=== PATIENT | male | born 1940 | race Caucasian/White ===

== ENCOUNTER 2021-04-18 23:04 | Emergency (ER) | payer MEDICARE, OTHER ==
[~2021-04-18] VITALS: Ht 177.8 cm; Wt 77.1 kg
[~2021-04-18 23:04] MED LIST: DIGOXIN125 MCG PO; DILTIAZEM 24HR120 MG PO; FAMOTIDINE40 MG PO; GABAPENTIN300 MG PO; JANTOVEN5 MG PO; LOVASTATIN20 MG PO; OMEPRAZOLE20 MG PO; PROPRANOLOL HCL60 MG PO
[2021-04-18] MEDS ORDERED: FLUTICASONE PRO16 GM NAS (23:18)
[2021-04-19] MEDS ORDERED: LASIX20 MG PO (01:07)
--- NOTE | 2021-04-19 06:54 | EKG ---
[facility] [address] [facility] [place], [place] [address] Signed Atrial fibrillation Low voltage QRS Nonspecific ST and T wave abnormality Abnormal ECG No previous ECGs available Confirmed by ANU LOONEY MD ([id number]) on 04/19/2021 6:54:41 AM Electronically Signed By: ANU LOONEY MD 04/19/21 0654 PATIENT NAME: DANIELLE ROMERO Electrocardiogram DATE OF : 36 PHYSICIAN: ANU LOONEY MD REPORT #: [id number] REPORT IS CONFIDENTIAL AND NOT TO BE RELEASED WITHOUT AUTHORIZATION
== END 2021-04-19 01:15 | disposition home or self-care (01) ==
LOC: ED 23:04
DX: I50.9 Heart failure, unspecified (principal); I48.91 Unspecified atrial fibrillation; Z88.2 Allergy status to sulfonamides; Z79.899 Other long term (current) drug therapy; Z20.822 Contact with and (suspected) exposure to COVID-19; Z79.01 Long term (current) use of anticoagulants
CPT/HCPCS: 36415; 71045; 80053; 83880; 84484; 85025; 85379; 85610; 93005; 93010; 96374; 99285-25; C9803; J1940; U0003

== ENCOUNTER 2022-01-06 14:08 | Emergency (ER) | payer OTHER, MEDICARE ==
[~2022-01-06] VITALS: Ht 177.8 cm; Wt 81.7 kg
[~2022-01-06 14:08] MED LIST changes: +CARDIZEM30 MG PO; +FLUTICASONE PRO16 GM NAS; +LASIX20 MG PO; +METOPROLOL SUCC25 MG PO
--- NOTE | 2022-01-06 15:21 | EKG ---
[facility] [address] [place] [address] Signed Atrial fibrillation Abnormal ECG When compared with ECG of 03-AUG-2021 16:24, Vent. rate has increased BY 42 BPM Confirmed by KACI CHOI MD ([id number]) on 01/06/2022 3:21:09 PM Electronically Signed By: KACI CHOI MD 01/06/22 1521 PATIENT NAME: DANIELLE ROMERO Electrocardiogram DATE OF : 36 PHYSICIAN: KACI CHOI MD REPORT #: [id number] REPORT IS CONFIDENTIAL AND NOT TO BE RELEASED WITHOUT AUTHORIZATION
== END 2022-01-06 19:00 | disposition short-term general hospital (02) ==
LOC: ED 14:08
DX: S06.5XAA Traumatic subdural hemorrhage with loss of consciousness status unknown, initial encounter (principal); S22.059A Unspecified fracture of T5-T6 vertebra, initial encounter for closed fracture; Z79.01 Long term (current) use of anticoagulants; W01.10XA Fall on same level from slipping, tripping and stumbling with subsequent striking against unspecified object, initial encounter; I48.91 Unspecified atrial fibrillation; E78.00 Pure hypercholesterolemia, unspecified; Z88.2 Allergy status to sulfonamides; Z79.899 Other long term (current) drug therapy; Z20.822 Contact with and (suspected) exposure to COVID-19
CPT/HCPCS: 36415; 70450; 71045; 71260; 72125; 73110; 80053; 84484; 85025; 85610; 85730; 93005; 93010; 99285-25; C9803; J1885; J3010; J3430; J7168; Q9967; U0003

== ENCOUNTER 2022-02-16 10:22 | Emergency (ER) | payer MEDICARE, OTHER ==
[~2022-02-16] VITALS: Ht 177.8 cm; Wt 81.7 kg
== END 2022-02-16 15:53 | disposition home or self-care (01) ==
LOC: ED 10:22
DX: U07.1 COVID-19 (principal); I48.20 Chronic atrial fibrillation, unspecified; E78.00 Pure hypercholesterolemia, unspecified; Z88.2 Allergy status to sulfonamides; Z79.899 Other long term (current) drug therapy; Z79.01 Long term (current) use of anticoagulants
CPT/HCPCS: 87502; 99283; C9803; U0003

== ENCOUNTER 2022-04-29 17:39 | Emergency (ER) | payer OTHER, MEDICARE ==
[~2022-04-29] VITALS: Ht 177.8 cm; Wt 81.7 kg
== END 2022-04-29 21:54 | disposition short-term general hospital (02) ==
LOC: ED 17:39
DX: S06.2X0A Diffuse traumatic brain injury without loss of consciousness, initial encounter (principal); S22.039A Unspecified fracture of third thoracic vertebra, initial encounter for closed fracture; W01.10XA Fall on same level from slipping, tripping and stumbling with subsequent striking against unspecified object, initial encounter; I48.91 Unspecified atrial fibrillation; E78.00 Pure hypercholesterolemia, unspecified; Z88.2 Allergy status to sulfonamides; Z79.899 Other long term (current) drug therapy; Z79.01 Long term (current) use of anticoagulants
CPT/HCPCS: 36415; 70450; 72125; 72128; 72131; 80053; 85025; 86850; 86900; 86901; 87502; 96374; 96375; 96376; 99285-25; G0480; J2270; J2405; U0003

== ENCOUNTER 2022-06-02 12:06 | Emergency (ER) | payer MEDICARE, OTHER ==
[~2022-06-02] VITALS: Ht 177.8 cm; Wt 74.4 kg
[2022-06-02] MEDS ORDERED: VENTOLIN HFA18 GM INH (12:42)
[2022-06-02] MEDS ORDERED: PERCOCET 5-3251 EACH PO (16:00)
[2022-06-03] MEDS ORDERED: OXYCODONE-ACET1 EAC1 PO (14:24)
[2022-06-03] MEDS ORDERED: DILTIAZEM HCL30 MG PO (14:25)
[2022-06-03] MEDS ORDERED: JANTOVEN5 MG PO (14:26)
[2022-06-03] MEDS ORDERED: CENTRUM SILVER1 EAC6 PO (15:51)
[2022-06-03] MEDS ORDERED: VITAMIN D3125 MC1 PO (15:53)
[2022-06-03] MEDS ORDERED: MAGNESIUM OXID400 M1 PO (15:53)
== END 2022-06-02 16:17 | disposition home or self-care (01) ==
LOC: ED 12:06
DX: S52.002A Unspecified fracture of upper end of left ulna, initial encounter for closed fracture (principal); S63.287A Dislocation of proximal interphalangeal joint of left little finger, initial encounter; S01.112A Laceration without foreign body of left eyelid and periocular area, initial encounter; W19.XXXA Unspecified fall, initial encounter; I48.91 Unspecified atrial fibrillation; I50.9 Heart failure, unspecified; E78.00 Pure hypercholesterolemia, unspecified; Z88.2 Allergy status to sulfonamides; Z79.899 Other long term (current) drug therapy; Z79.01 Long term (current) use of anticoagulants
CPT/HCPCS: 12013; 28660; 36415; 70450; 71045; 72125; 73080; 73140; 80053; 85025; 85610; 86850; 86900; 86901; 99284-25; G0480; J7030; J7040

== ENCOUNTER 2022-06-03 10:05 | Inpatient (IN) | payer MEDICARE, OTHER ==
[~2022-06-03] VITALS: Ht 177.8 cm; Wt 77.6 kg
[~2022-06-03 10:05] MED LIST changes: +PERCOCET 5-3251 EACH PO; +VENTOLIN HFA18 GM INH
--- NOTE | 2022-06-03 13:30 | NUR ---
REPORT RECEIVED FROM VTC TECHNICIAN AND PT CARE RESUMED. INTAKE COMPLETED. PT. REPORTS PAIN IS 3/10 AND REFUSES PAIN MEDS. DISCUSSED SAFETY AND POC. 2 RN SKIN ASSESSMENT COMPLETED BY THIS RN AND KOURTNEY. LEFT RESTING WITH CALL LIGHT IN REACH AND AT BEDSIDE.
[2022-06-03] MEDS ORDERED: OXYCODONE-ACET1 EAC1 PO (14:24)
[2022-06-03] MEDS ORDERED: DILTIAZEM HCL30 MG PO (14:25)
[2022-06-03] MEDS ORDERED: JANTOVEN5 MG PO (14:26)
--- NOTE | 2022-06-03 14:30 | NUR ---
THIS RN TO ROOM TO ASSIST WITH ADMISSION. CRYO CUFF PLACED PER MD ORDER. ROLLED TOWEL PLACED UNDER LEFT HEEL. LEFT LEG BRACE LEFT IN PLACE WITH NO ADJUSTMENTS MADE. PT JEANMARIE PAIN WITH INTERVENTIONS. MEI HOSE AND HEEL PROTECTOR PLACED TO RIGHT LEG AT THIS TIME. tELEMETRY PLACED PER DR CHOI ORDER. THIS RN PERFORMS SKIN ASSESSMENT WITH LENORA RN. (SEE SKIN ASSESSMENT DOCUMENTATION. PT CHANGED INTO GOWN. SLINE REAPPLIED. PT CRINGES WITH PAIN OCCATIONALLY WITH MOVEMENT OF LEFT ARM, CALMS AND REPORTS FEELING COMFORTABLE AFTER SLING IS REPLACED. NO ADDITIONAL NEEDS AT THIS TIME. LENORA, PTS PRIMARY RN AT BEDSIDE AND AWARE OF CARES. CALL LIGHT WITHIN REACH. BED RAILS UP.
--- NOTE | 2022-06-03 15:34 | NUR ---
ROUNDING ON PT. HE IS RESTING WITH EYES CLOSED AND AT BEDSIDE. ON TELEMETRY. DENIES NEEDS FOR HIM AT THIS TIME. CALL LIGHT IN REACH.
[2022-06-03] MEDS ORDERED: CENTRUM SILVER1 EAC6 PO (15:51)
[2022-06-03] MEDS ORDERED: MAGNESIUM OXID400 M1 PO (15:53)
[2022-06-03] MEDS ORDERED: VITAMIN D3125 MC1 PO (15:53)
--- NOTE | 2022-06-03 15:56 | NUR ---
MED REC COMPLETE
--- NOTE | 2022-06-03 16:00 | NUR ---
Spoke with pt and his Arti. They live in [place] in a house with 3 steps. Pt denies issues getting in and out of the house. states pt has had frequent falls and has been injured each time. Pt has a walker and cane. She states daughter in law went to [place] and picked up several items for pt. She is unsure what equipment she got. Discussed Dr. Parnell called and states pt needs placement to a SNF. Both states they are aware and want to go to [facility]. They do not want to leave town. I will send the chart to [facility] today, per a conversation with them this morning, they will not have beds until the middle of next week. states concern as she believes her insurance will only cover for 30 days. Discussed Medicare will pay 21 days and [facility] will assist her to check for her secondary insurance [employer]. also states pt has completed a sleep study and CPAP is in process. She denies financial issues and states everything will be fine if the insurance covers his SNF stay. They do not use food bank or [employer]. states pt will have surgery on Monday. Will follow up them on Monday.
--- NOTE | 2022-06-03 17:00 | NUR ---
Faxed face sheet, ER note, H&P, med list, covid vac sheet, and Xrays to Augie at [facility]. Note added pt will have surgery on Monday and will dc sometime next week.
--- NOTE | 2022-06-03 19:30 | NUR ---
RECEIVED BEDSIDE REPORT FROM OFFGOING SHIFT, HOURLY ROUNDING INITIATED
--- NOTE | 2022-06-03 20:20 | NUR ---
IN PT ROOM FOR MEDICATION ADMINISTRATION AND ASSESSMENT. PT RESTING ON BACK, SLING IN PLACE, TOWELS UNDER ANKLE WITH NO COMPLAINT OF PAIN. PT IS MEDICATION COMPLIANT, CALL LIGHT IN REACH
--- NOTE | 2022-06-03 21:31 | EKG ---
[facility] [address] [facility] [place] [address] Signed Atrial fibrillation Abnormal ECG When compared with ECG of 06-JAN-2022 14:33, No significant change was found Confirmed by KACI CHOI MD ([id number]) on 06/03/2022 9:31:29 PM Electronically Signed By: KACI CHOI MD 06/03/222130 PATIENT NAME: DANIELLE ROMERO Electrocardiogram DATE OF : 36 PHYSICIAN: KACI CHOI MD REPORT #: [id number] REPORT IS CONFIDENTIAL AND NOT TO BE RELEASED WITHOUT AUTHORIZATION
--- NOTE | 2022-06-03 21:50 | NUR ---
ROUNDED ON PT . REPLACED BATTERY IN TELE UNIT. PT STATES HE IS NOT SLEEPING WELL . DENIES ANY NEED FOR PAIN MEDICATION. WILL CALL FOR ANY NEEDS. CALL LIGHT IN REACH.
--- NOTE | 2022-06-03 23:58 | NUR ---
IN PT ROOM FOR ROUNDING. PT RESTING ON BACK, SLING AND BRACE IN PLACE, BREATHING EVEN AND UNLABORED, CALL LIGHT IN REACH NO INDICATION OF PAIN OR DISCOMFORT.
--- NOTE | 2022-06-04 01:00 | NUR ---
IN PT ROOM FOR ROUNDING. PT RESTING ON BACK, EYES CLOSED, BREATHING EVEN AND UNLABORED, NO INDICATION OF PAIN OR DISCOMFORT, CALL LIGHT IN REACH.
--- NOTE | 2022-06-04 02:23 | NUR ---
in pt room for medication administration, rounding. pt resting on back, eyes open, talking about the "incessant beeping". Pt has no complaint of pain when asked, call light in reach.
--- NOTE | 2022-06-04 03:35 | NUR ---
In pt room for rounding. pt resting on back, eyes closed, breathing even and unlabored with no indication of pain or discomforft, call light in reach.
--- NOTE | 2022-06-04 04:39 | NUR ---
IN PT ROOM FOR RESPONSE TO TELEMETRY READING A 9 BTS RUN OF V-TACH WITH A HEART RATE OF 134. WENT INTO ROOM IMMEDIATELY AND ASSESSED VS, THEY WERE STABLE (SEE VS) PT WAS ASYMPTOMATIC, LOC WAS A&OX4, INFORMED MD DR. CHOI AND A BMP AND MAGNESIUM LEVEL WERE ORDERED WITH NO FURTHER INTERVENTIONS.
--- NOTE | 2022-06-04 05:31 | NUR ---
Lab unable to get a blood draw on normal veins, contacted Dr. Azul and was informed ok to follow lab protocol regarding retrieving blood draw from IV line. Verified IV line was patent and followed lab protocol to good effect.
--- NOTE | 2022-06-04 06:55 | NUR ---
IN PT ROOM FOR ROUNDING. PT RESTING WITH EYES CLOSED, BREATHING UNLABORED AND EVEN, NO INDICATION OR COMPLAINT OF PAIN AT THIS TIME, CALL LIGHT IN REACH.
--- NOTE | 2022-06-04 09:00 | NUR ---
REPORT RECEIVED FROM NIGHT RN AND PT CARE RESUMED. PT. DENIES PAIN. ASSESSMENT COMPLETED. PT. ASSISTED WITH ORDERING BREAKFAST. MEI HOSE IN PLACE. CRYO CUFF FILLED WITH FRESH ICE WATER. LEFT RESTING WITH CALL LIGHT IN REACH.
--- NOTE | 2022-06-04 10:00 | NUR ---
PT. HAD BM ON BEDPAN AND STOOL SAMPLE SENT TO LAB. ASSISTED WITH CLEANING. BROUGHT ICE WATER AND LEFT RESTING WITH CALL LIGHT IN REACH.
--- NOTE | 2022-06-04 10:22 | NUR ---
PATIENT IN BED. VITALS AND I/O'S COMPLETED. CALL LIGHT WITHIN REACH.
--- NOTE | 2022-06-04 13:18 | NUR ---
IV PUMP ALARMING "DISTAL OCCULSION" FREQUENTLY. PT TRYING TO EAT AND BECOMING FRUSTRATED WITH PUMP ALARM. PT REQUESTS A NEW IV SITE. 2ND IV PLACED TO RIGHT WRIST PER PROTOCOL, BRISK BLOOD RETURN NOTED. IV FLUIDS MOVED TO THIS SITE. RIGHT AC IV FLUSHED AND SALINE LOCKED PER PROTOCOL. ALCOHOL CAP APPLIED. SKIN ASSESSMENT PERFORMED (FOR 2ND RN CHECK). PT DENIES ADDITIONAL REQUESTS OR COMPLAINTS. CALL LIGHT WITHIN REACH. BED RAILS UP. PTS PRIMARY RN UPDATED.
--- NOTE | 2022-06-04 13:26 | NUR ---
PT. BREATHING IS LOUDER AND MORE LABORED. PT. STATES HE IS MORE SOB. CRACKLES PRESENT IN LLL. O2 SAT IS 93% AND RR IS 28. MD UPDATED AND CHEST XRAY ORDERED. WILL CONTINUE TO MONITOR.
--- NOTE | 2022-06-04 14:33 | NUR ---
PATIENT IN BED AFTER MEAL. VITALS AND I/O'S COMPLETED, PENNY DRAINED AND DOCUMENTED. ICE WATER GIVEN. CALL LIGHT WITHIN REACH.
--- NOTE | 2022-06-04 18:58 | NUR ---
PTS RN, LENORA, CONCERNED ABOUT PTS INCREASED WORK OF BREATHING. OXGYEN SATURATIONS 93-95%. DR CHOI CALLED AND ORDERS GIVEN FOR CPAP X1-2 HOURS AND CONTINUED IF S/S IMPROVE. DR. OSEI ALSO CALLED (PER DR CHOI RECCOMENDATION) RELTAED TO PTS TRAUMA STATUS. ORDERS GIVEN FOR CHEST CT PE STUDY WITH CONTRAST AND TO HOLD CPAP UNTIL AFTER CT HAS BEEN COMPLETED. ORDERS ENTERED, REPEAT BACK PERFORMED WITH BOTH MDs. IMAGING CALLED. PT TO CT WITH Zuleika MILLER. PTS PRIMARY RN UPDATED.
--- NOTE | 2022-06-04 19:16 | NUR ---
SHIFT REPORT RECEIVED FROM LENORA FAIRBANKS, PT IS CURRENTLY IN CT.
--- NOTE | 2022-06-04 19:30 | NUR ---
PT RETURNED VIA BED FROM CT. ALERT. REPOSITIONED UP IN BED. LEFT ARM REMAINS IN SLING, FINGERS ON LEFT HAND WARM AND PINK, SLIGHT MOVEMENT NOTED, CRYO CUFF TO LEFT LEG, REFILLED WITH ICE PER LENORA RN, LEFT LEG BRACE INTACT, WITH TEDS HOSE ON LEFT LEG, TOES ON LEFT FOOT PINK AND WARM, TOWEL ROLL UNDER LEFT ANKLE. PT RESTING WITH EYES CLOSED, DENIES NEEDS AT THIS TIME.
--- NOTE | 2022-06-04 19:35 | NUR ---
NOTED THAT THE IV DOCUMENTED BEING IN LEFT AC WAS IN RIGHT AC, 20G, DRESSING INTACT, FLUSHES WELL, SL.
--- NOTE | 2022-06-04 19:52 | NUR ---
DR CHOI IN TO SEE PTMD STATES HE WILL FOLLOW UP ON CT WHEN RESULT AVAILABLE.
--- NOTE | 2022-06-04 20:50 | NUR ---
TC RECEIVED FROM DR OSEI, REQUESTING RESULTS OF CT SCAN, REPORTED TO MD THAT RESULTS HAVE NOT BE COMPLETED, MD REQUESTS TO BE CALLED WHEN RESULTS BECOME AVAILABLE.
--- NOTE | 2022-06-04 20:54 | NUR ---
VS DONE PRIOR TO LOPRESSOR ADMINISTRATION.
--- NOTE | 2022-06-04 21:56 | NUR ---
CT RESULTS CALLED TO DR OSEI PER EARILIER REQUEST, UPDATED ON PT'S MANUEL WITH SATS DOWN TO 91%, PLAN TO PLACE CPAP PER DR CHOI'S ORDER DISCUSSED, DR OSEI CONCURS WITH THIS.
--- NOTE | 2022-06-04 23:00 | NUR ---
PT AWAKE, PT HAD SOFT BROWN BM PER BEDPAN, REPOSITIONED TO RIGHT SIDE, BUTTOCK CLEANSED FROM STOOL, PT REPOSITIONED UP IN BED, LEFT ARM REMAINS IN SLING, LEFT LEG BRACE IN PLACE, NEW ICE TO CRYO MACHINE, PLACEMENT TO LEFT KNEE AREA, RT NOTIFIED PT IS READY FOR CPAP PLACEMENT.
--- NOTE | 2022-06-04 23:15 | NUR ---
CARL RT IN ROOM TO PLACE PT ON CPAP PER ORDER.
--- NOTE | 2022-06-05 00:02 | NUR ---
RN TO BEDSIDE FOR CPAP ALARM, PT HOLDING CPAP IN HANDS, REPLACED WITH ASSISTANCE FROM ROMERO RN, PT ATTEMPTING TO REST.
--- NOTE | 2022-06-05 00:20 | NUR ---
RN TO ROOM DUE TO CPAP ALARM, PT HOLDING MASK IN HIS HAND, PT TOLD RN HE IS DONE WITH CPAP, HE SAID HE NO LONGER WANTS TO WEAR CPAP AT THIS TIME, PT DENIES REQUEST, ATTEMPTING TO SLEEP, RT NOTIFEIED OF PT'S DECISION. CPAP PLACED IN STANDBY MODE PER RT INSTRUCTIONS.
--- NOTE | 2022-06-05 01:10 | NUR ---
PT APPEARS TO SLEEP, EYES CLOSED, O2 SAT 92%.
--- NOTE | 2022-06-05 02:05 | NUR ---
PT AWAKEN FOR RT LOPRESSOR, VS WNL FOR MEDICATION, PT WITHOUT REQUESTS, ATTEMPTING TO REST, CRYO IN PLACED AND COLD, IV SITE PATENT, I/O DONE.
--- NOTE | 2022-06-05 03:50 | NUR ---
PT RESTING WITH EYES CLOSED, OX SAT 93%.
--- NOTE | 2022-06-05 05:16 | NUR ---
PT AWAKEN, VS DONE AND BP RECHECKED, REMAINS AFEBRILE, LEFT ARM REMAINS IN SLING, AND LEFT LEG REMAINS IN FIXATION DEVICE. PT DENIES PAIN. ASSESSMENT COMPLETED.
--- NOTE | 2022-06-05 05:30 | NUR ---
THREE PERSON ASSIST TO TILT PATIENT, INCONTINENT OF SOFT BROWN STOOL, BUTTOCK CLEANSED AND BARRIER CREAM APPLIED, PT BECOME VERY DYSNIC WITH EXCERTION WITH SATS DOWN TO 89, OXYGEN PLACED ON PT AT 2L PER NC, PT REPOSITIONED UP IN BED, HOB ELEVATED APPROXIMATELY 30 DEGREES, RESP EFFORT EASES WHEN ALLOWED TO REST, PT CONTINUES TO DENY PAIN, CYRO REMAINS ON LEFT KNEE AND IS COLD, TOWEL ROLL UNDER LEFT ANKLE. AFTER APPROX 5 MINS SATS 98-99%, RESP LESS LABORED, PT RESTING WITH EYES CLOSED, OXYGEN TURNED OFF.
--- NOTE | 2022-06-05 07:57 | NUR ---
PT SLEEPING SOUNDLY AT TIME OF SHIFT REPORT. AWAKE NOW AND REPOSITIONED SITTING UP IN BED. ARM SLING AND KNEE IMMOBILZER IN PLACE. DR OSEI IN TO SEE PT
--- NOTE | 2022-06-05 08:12 | NUR ---
Pt repositioned in bed, am care completed, call light within reach.
--- NOTE | 2022-06-05 09:21 | NUR ---
PATIENT IN BED AFTER MEAL. VITALS AND I/O'S COMPLETED. PENNY DRAINED AND DOCUMENTED. ICE REFILLED TO CRYO-CUFF. ICE PACK TO LEFT ARM. ICE WATER GIVEN. CALL LIGHT WITHIN REACH.
--- NOTE | 2022-06-05 10:03 | NUR ---
PT VERY SOB WITH ACTIVITY OF TURNING IN BED RECOVERS FAIRLY QUICKLY. 02 APPLIED PRIOR TO TURNING AND DOING CLEVE CARE WITH INSTRUCTIONS TO BREATH THROUGH THE NOSE MUCH BETTER TOLERATED. CATH CARE COMPLETED PT CLEANED UP AFTER HAVING A BM. AGREES HE IS COMFORTABLE NOW
--- NOTE | 2022-06-05 10:58 | NUR ---
PT RESTING IN BED EYES CLOSED BREATHING EVEN AND UNLABORED. SOB REPORTED TO DR CHOI EARLIER.
--- NOTE | 2022-06-05 12:13 | NUR ---
PT SON IN TO SEE HIM FOR A SHORT TIME.
--- NOTE | 2022-06-05 14:51 | NUR ---
PT TOLERATING BI-PAP WELL. STOPS FOR PO MEDS AND SHORT BREAK THEN RESUMES TREATMENT
--- NOTE | 2022-06-05 15:56 | NUR ---
PT RESTING WITH BIPAP GOING
--- NOTE | 2022-06-05 18:03 | NUR ---
PT CONTINUES WITHOUT C/O PAIN. SITTING UP IN BED WITH EVENING MEAL TALKING ON THE PHONE. PT APPEARS MUCH IMPROVED SINCE USE OF BIPAP NO AUDIBLE WHEEZING MOVES IN BED EASIER WITHOUT SOB.
--- NOTE | 2022-06-05 19:14 | NUR ---
BEDSIDE REPORT RECEIVED FROM FLORENCE FAIRBANKS, PT ALERT, RESTING IN BED, WITHOUT REQUESTS AT THIS TIME.
--- NOTE | 2022-06-05 20:00 | NUR ---
RN TO ROOM, PT ALERT, VS STABLE, NOTED TEMP 99.2, ASSESSMENT COMPLETED, LEFT LEG BRACE IN PLACE, CRYO TO LEFT KNEE COLD AND ICE CHECKED, TOWEL UNDER LEFT ANKLE, HEEL PROTECTOR AND SCD ON RIGHT LEG, LEFT ARM SLING IN PLACE, HOB ELEVATED APPROX 30 DEGREES, PT DENIES PAIN AT THIS TIME.
--- NOTE | 2022-06-05 20:07 | NUR ---
TC TO DR OSEI, ORDERS RECEIVED TO START LR AT 125ML/HR AT 0001 WHEN PT BECOMES NPO FOR SURGERY.
--- NOTE | 2022-06-05 21:35 | NUR ---
CPAP REMOVED BY PT, PT PLACED ON OXYGEN AT 2 L PER NC IN PREP FOR REPOSITIONING, VS RECHECKED, RT MEDS GIVEN PER ORDER WITH SIPS OF WATER, DISCUSSED NPO STATUS AFTER MIDNIGHT AND PT'S VOICES UNDERSTANDING.
--- NOTE | 2022-06-05 21:45 | NUR ---
PT INCONTINENT SMALL AMOUNT BROWN SOFT STOOL, BUTTOCK CLEANSED AND BARRIER CREAM APPLIED, REPOSITIONED UP IN BED AND SLIGHT TILT WITH PILLOWS, ICE TO LEFT SHOULDER, CRYO REPLACED TO LEFT KNEE, PT REPLACED ON CPAP, PT WITHOUT REQUEST, HOB ELEVATED APPROX 30 DEGREES, I/O DONE.
--- NOTE | 2022-06-05 22:00 | NUR ---
NEW ICE TO CRYO MACHINE.
--- NOTE | 2022-06-05 22:55 | NUR ---
CPAP TAKEN OFF PER PATIENT, PT REPORTS HE NEEDS A LITTLE BREAK AT THIS TIME, PT REMAINS ON CPOX.
--- NOTE | 2022-06-06 00:05 | NUR ---
PT MADE NPO FOR AM SURGERY, LR STARTED AT 125ML/HR PER SL RIGHT FOREARM AFTER FLUSHING WITH NS, SITE INTACT. PT DESIRES TO BE PLACED ON BEDPAIN, 2PA TO TURN AND PLACE ON BEDPAN. PT WITHOUT OTHER REQUESTS AT THIS TIME.
--- NOTE | 2022-06-06 01:10 | NUR ---
OXYGEN CONTINUES AT 2 L/NC, OFF BEDPAN, NO STOOL AT THIS TIME, CRYO IN PLACE.
--- NOTE | 2022-06-06 01:30 | NUR ---
CPOX TURNED OFF, PT STATES HE IS LOOKING FORWARD TO SURGERY BEING DONE, SUPPORT GIVEN, OXYGEN CONTINUES AT 2L/NC. PT ATTEMPTING TO REST.
--- NOTE | 2022-06-06 03:33 | NUR ---
PT APPEARS TO SLEEP, RESP EVEN AND REG
--- NOTE | 2022-06-06 04:15 | NUR ---
RN TO ROOM , NEW ICE TO CRYO MACHINE, PT AWAKENS, ATTEMPTED TO FLUSH RIGHT AC, SITE LEAKING, D'ZEYAD CATH INTACT, PRESSURE DRESSING TO SITE, PT WILLING TO TRY CPAP, CPAP PLACED ON PT. TEMP 98.7 AX, ASSESSMENT DONE.
--- NOTE | 2022-06-06 04:50 | NUR ---
RN TO ROOM FOR CPAP ALARM, PT TOOK OFF MASK AND STATES HE IS DONE WEARING MASK AT THIS TIME, OXYEN PLACED ON AT 2 L/NC, PT ATTEMPTING TO REST.
--- NOTE | 2022-06-06 06:00 | NUR ---
PT RESTING, I/O DONE, VS DONE, PT WITHOUT REQUESTS AT THIS TIME.
--- NOTE | 2022-06-06 06:45 | NUR ---
PT AWAKE AND ALERT, DESIRES TO TRY HAVING A BM, PLACED ON BEDPAN, UNABLE TO HAVE BM AFTER A FEW MOMENTS, PT REPOSITIONED, CRYO IN PLACE TO LEFT LEG, LEFT ARM SLING IN PLACE, LEFT HAND ELEVATED ON PILLOW, PT RESTING, IV PATENT.
--- NOTE | 2022-06-06 07:53 | NUR ---
PT AWAKE AND INTERACTIVE AT TIME OF SHIFT REPORT. CONTINUES TO DENY PAIN AND REMAINS NPO FOR O/R.
--- NOTE | 2022-06-06 08:41 | NUR ---
PT RESTING EYES CLOSED BREATHING EVEN AND UNLABORED
--- NOTE | 2022-06-06 09:00 | NUR ---
DID SURGICAL WIPE DOWN ON PATIENT. CHANGED HIS GOWN WASHED HIS FACE. DID CLEVE CARE AND CATH CARE.
--- NOTE | 2022-06-06 09:16 | NUR ---
PT PREPPED FOR SURGERY DENIES QUESTIONS OR CONCERNS.
--- NOTE | 2022-06-06 11:40 | NUR ---
PATIENT CURRENTLY IN OR
--- NOTE | 2022-06-06 12:38 | NUR ---
06/06/22 1238 [address] 1231 PATIENT ARRIVES TO PACU RESTING WITH EYES CLOSED. DOES NOT RESPOND TO VERBAL STIMULI. RESP EVEN AND UNLABORED, MASK AT 6 LITERS. 1238 PATIENT OPENS EYES WITH VERBAL STIMULI. RESP EVEN AND UNLABORED, OXYGEN OFF. PATIENT BACK TO SLEEP WHEN NOT STIMULATED.
--- NOTE | 2022-06-06 13:14 | NUR ---
PUBLISHER ASSISTANTMAGDI MONTANO INFORMED ME PT TAKEN TO OR FOR SURGERY. WILL FOLLOW
--- NOTE | 2022-06-06 13:15 | NUR ---
pt to ccu from pacu post left elbow surgery and left leg brace placement. elbow drsg intact clean and dry with good cap refill and pulses at radial. tripp to gravity with 200 ml of urine out. call light in reach.
--- NOTE | 2022-06-06 13:30 | NUR ---
rn in room for rounds with dr viera - close i/o and call dr with any holds on lopressor even in night. pt continues to deny pain and call light is in reach.
--- NOTE | 2022-06-06 13:54 | NUR ---
RN CONTINUES TO BE AT BEDSIDE - PT SEEMS CONFUSED - KEEPS REMOVING PULSE OX MONITOR AND REFUSES TO LEAVE IT ALONE, SAYS YOU KNOW.... AND GRABS AT MONITOR AND RN IT IS REPLACED. PT ALSO IS RUFUSING BP AND REMOVING THE BP CUFF. PT SEEMS IRRITATED, SUSPISIOUS, WHEN ASKED QUESTION SUCH DO YOU DRINK COFFEE AT BREAKFAST HE SAYS NO, YOU KNOW THAT AND IS ANGRY. ANSWERS NO TO MOST ALL QUESTIONS, AND CONTINUES TO REMOVE MONITORS. PT MOVING AROUND IN BED, BENDING RIGHT LEG AND TRYING TO REMOVE MONITOR FROM LEFT TOE PULSE OX. HR IS INCREASED TO 105 WITH AGITATION. MEDICAL CARE MANAGER BENJAMIN NARANJO AND CALL TO SILK OPENER FOR FURTHER REPORT ON PRE SURGERY BASELINE. VISITOR JUST ARRIVED TO SEE PT.
--- NOTE | 2022-06-06 14:14 | NUR ---
AFTER PACU, PT MOVED TO CCU RM 128. TRIED TO CONTACT PTS' RISA, TO ANSWER. LEFT MSG, WILL FOLLOW
--- NOTE | 2022-06-06 15:00 | NUR ---
THIS RN HAD PRE OP RN COME VISIT TO HELP ASSESS BASELINE MENTATION, KIMANI DID NOT REMEMBER ME FROM HIS PRESENT CARE BUT SMILED AND REMEMBERED FLORENCE RN FROM PRE OP, HE SEEMED TO SMILE AND RELAX A BIT JOKING WITH HER AND THIS RN AND PT BROTHER RE ORIENTED PT TO THIS RN AND POST SURGERY PLAN. PT DENIES PAIN. WHEN APPROCHED AGAIN ABOUT NEEDS HE DENIES - RN OFFERED FOOD AND DRINK - AFTER LONG PAUSE - PT SLOWLY ASKS FOR CHOCOLATE, OFFERED JACKIE. SHAKE AND HE ASKS FOR JACKIE. CHIP COOKIE ALSO - THEY ARE ORDERED. PT CONSUMES BOTH WELL WITH RN AND BROTHER IN ROOM, SWALLOW WNL - THANKFUL. WATCHING TV. PENNY DRAINED FOR URINE MONITORING OF 75 NL OF URINE, AND CRYO CUFF TO LEFT KNEE REFILLED ICE. PT DENIES NEEDS.
--- NOTE | 2022-06-06 15:21 | NUR ---
PT FACE TIME TALKING WITH HIS FAMILY - PT THINKS HIS LEG WAS OPERATED ON, BROTHER REMINDS HIM ONLY HIS ARM IS OPERATED ON. PT ASKING TO TAKE HIM HOME, PT IS ALSO SICK DEBATING ON GOING TO HOSPITAL HERSELF FAMILY CARING FOR HER CURRENTLY.
--- NOTE | 2022-06-06 15:57 | NUR ---
note sent to dr ortiz and dr viera about pt confusion and agitation - update. seems to be more agreeable - continues to be disoriented to day and event. with cue's he catchs on and is re oriented.
--- NOTE | 2022-06-06 16:36 | NUR ---
PT SON IN TO VISIT PT, SEEMS TO BE MORE ORIENTED AND TALKATIVE TO BOTH THIS RN AND SON. DENIES PAIN, DRINKING WATER WELL, CALL LIGHT IN REACH.
--- NOTE | 2022-06-06 17:50 | NUR ---
call to dr viera to update about improved mentation, pt sitting in bed eating meal watching tv - tripp draining yellow urine dr aware of i/o and vitals. pt denies needs. call light in reach.
--- NOTE | 2022-06-06 20:19 | NUR ---
PT ALERT AND ORIENTED, FORGETFUL, PLEASANT AT THIS TIME, R.T. COMPLETED NEB TX, PT ASKED FOR MORE ICE TEA, PROVIDED, CHECKED CRYO CUFF IS COLD, PT REPORTS NO PAIN OR NAUSEA.
--- NOTE | 2022-06-06 22:57 | NUR ---
PATIENT WAS SLEEPING. NOTICED THAT SATURATION DROPPED AND PATIENT WAS PLACED ON BIPAP. NOW SATING 97%
--- NOTE | 2022-06-07 03:57 | NUR ---
patient is resting in bed.
--- NOTE | 2022-06-07 05:22 | NUR ---
patient is resting in bed. call light in place
--- NOTE | 2022-06-07 06:45 | NUR ---
PATIENT IS AWAKE AND ABLE TO COMMUNICATE WITH SHIFT SUPERVISOR FILM PROCESSING ROUNDING FOR DR. OSEI. REQUESTED TO GET MORE REST ON CPAP.
--- NOTE | 2022-06-07 07:15 | NUR ---
REPORT FROM GEOVANY RN, PT EYES CLOSED ON CPAP, RESTING QUIETLY, SATS 100% O2 30% RATE 16. LEFT ARM DRSG CDI, FINGERS PWD, LEFT LEG IN BREG BRACE WITH MEI PRADHAN BILAT, HEEL PROTECTORS, CRYO CUFF ON LEFT LEG, ICE TO ARM. PENNY TO GRAVITY, LR @75 R ARM IV.
--- NOTE | 2022-06-07 08:05 | NUR ---
THIS RN CALLED RT RONIT - HEATED WATER PLACED TO CPAP AND INCREEASED TO 12, WITH 30 FIO2, PT CONTINUES TO REST THROUGH ASSESSMENT, RESP RATE 12-20 WITH NOTED APNEA. CALL LIGHT IN REACH.
--- NOTE | 2022-06-07 08:50 | NUR ---
RN AWAKENED PT AND REMOVED CPAP - REPLACED WITH NC AT 3L FOR MEAL, SAT PT UP IN BED HOB 55 DEGREES, PT FEEDING SELF, RATES PAIN AT REST 1/10 BUT SAID WOULD HURT IF HE MOVED - PO NORCO GIVEN WITH AM MEDS AT THIS TIME. PT ALERT AND ORIENTED TO DAY AND THINKS WE ARE AT [facility] REMINDED WE ARE IN [place] THEN HE REMEMBERS [facility]. COOPERATIVE AND PLEASANT.
--- NOTE | 2022-06-07 10:00 | NUR ---
CALL TO Terry ZHANG, SEE NEW ORDERS FOR PT/OT - CALL TO MED SURG TO NOTIFY THERAPY. NON WEIGHT BEARING, OK FOR CHAIR.
--- NOTE | 2022-06-07 10:08 | NUR ---
PT ALERT AND ORIENTED TO BROTHER AND FAMILY - VISITING IN HIS ROOM AT THIS TIME.
--- NOTE | 2022-06-07 10:21 | NUR ---
PATIENT RESTING IN BED, VISITERS AT BEDSIDE. CALL FROM TRANSFERED INTO ROOM.
--- NOTE | 2022-06-07 10:31 | NUR ---
PT MUCH MORE ALERT, TODAY, SIGNIFICANT BRUISING ON L EYE. O2 NC IN USE. PT RECOGNIZED ME, HAD GOOD VISIT. PT REQUESTED I CONTACT HIS . HE STATED "I DON'T KNOW WHERE SHE IS". WAS ABLE TO CONTACT FAMILY, THEY STATED BOTH WERE TALKING ON THE PHONE AT THE MOMENT. PT ALSO REQUESTED A VISIT FROM [facility] TODAY. INFORMED HIM HE WILL VISIT. PT REQUESTED PRAYER, GAVE P.CARLOS MANUEL AND G.POST. WILL FOLLOW
--- NOTE | 2022-06-07 11:45 | NUR ---
PT HAD JUST SAT AT EDGE OF BED WITH pt MERVAT - RN NOTICE SOILED SHEETS FROM BM, ot BENJAMIN IN TO WORK WITH PT AND THIS RN SAT PT UP TO EDGE OF BED, CLEANED BACK AND BOTTOM CLEVE AREA OF STOOL AND CAREFULLY PIVOT TRANSFERED PT TO - NON WEIGHT BEARING STATUS LEFT LEG/ARM. PT TOLLERATED VERY WELL, WITH ARM IN SLING. LEGS ELEVATED IN CHAIR, CRYO CUFF ICE REFILLED AND ALL EXTREMITIES CMS WNL PINK WARM AND DRY. PT ALERT AND ORIENTED - BED BATH/CLEVE CARE COMPLETE WITH PENNY TO GRAVITY. CALL LIGHT IN REACH WITH ot INTERVIEWING PT DURING LUNCH. OXYGEN WNL SO REMOVED NC AND SATS 97% RA.
--- NOTE | 2022-06-07 13:41 | NUR ---
pt continue to be comfortable in chair now reclined with legs elevated, 97 % room air - visiting with his brother and call light in reach.
--- NOTE | 2022-06-07 14:00 | NUR ---
CALL TO Terry ZHANG FOR PT UPDATE, ROOM AIR, UP TO CH - NEW ORDERS FOR TRSF TO MEDICAL SURGICAL. EMBEDDED SYSTEMS DESIGNER AWARE AND CALL TO 3S.
--- NOTE | 2022-06-07 14:29 | NUR ---
SPOKE TO PATIENT ABOUT THE DISCHARGE PLAN. PATIENT IS BEING TRANSFERED TO THE MEDICAL FLOOR. PATIENT STILL WANTS TO BE TRANSFERED TO [facility] WHEN ORDERED BY THE MD. [facility] DOES NOT HAVE BEDS AT THIS TIME. ARYA AT [facility] WILL KEPT CASE MANAGEMENT UPDATED.
--- NOTE | 2022-06-07 15:45 | NUR ---
PT TRSF TO RM 111 MED SURG VIA CHAIR, HEMALATHA TO GRAVITY, PT BELONGINGS ACCOUNTED FOR AND WITH PT. CERTIFIED PEST CONTROL TECHNICIAN TRSF NECKLACE FROM PT LOCK BOX. REPORT TO ANEESH FAIRBANKS.
--- NOTE | 2022-06-07 15:50 | NUR ---
PATIENT BROUGHT TO THE FLOOR IN HIS CHAIR WITH ALL HIS BELONGINGS. PATIENT PAIN IS 5/10 AND HE WOULD LIKE SOMETHING WHEN HE CAN. PATIENT HAS A BRACE ON HIS LEFT LEG AND HAD RECENT SURGERY ON HIS LEFT ARM THAT HAS THE CRYO CUFF ON. PATIENT HAS CPAP THAT WAS MOVED OVER BY RT. PATIENT HAS A PENNY IN CURRENTLY. PER MAGDI RACHEL IN CCU WANTS TO BE ADVISED OF ANY MEDICATIONS HELD. PATIENT CURRENTLY LIVES AT HOME WITH HIS BUT PLANS TO GO TO [facility]. PATIENT IS SL ON THE RIGHT ARM. PATIENT HAS A SLING TO WEAR ON THE LEFT ARM WHEN UP AND MOVING. PATIENT DENIES ANY CARES BESIDE MEDICATIONS FOR PAIN HIS LEFT ARM IS STARTING TO STING A LITTLE. PATIENT ON TELE #8 WITH PULSE OX. PATIENT TO BE MONITORED CLOSE AT NIGHT WITH HIS OXYGEN LAST NIGHT IN CCU HE WAS VERY LOW. PATIENT HAS MEI HOSE ON, HEAL PROTECTORS AND SCD'S. CALL LIGHT WITHIN REACH.
--- NOTE | 2022-06-07 19:41 | NUR ---
REPORT RECEIVED FROM DAY SHIFT RN. PT SITTING IN RECLINER ALERT AND ORIENTED. REPORTS PAIN TOLERABLE 2/10. WILL ASSIST TO TRANSFER TO BED AFTER PHONE CALL. WHITE BOARD UPDATED. CALL LIGHT IN REACH.
--- NOTE | 2022-06-07 20:44 | NUR ---
3PA BACK TO BED FROM RECLINER WITH HEMIWALKER AND PIVOT TX. LEFT ARM IN SLING, LEFT LEG IN BRACE. PT MICHELL WELL. PT DID REPORTS SOB WITH ACTIVITY. SpO2 MID 90'S ON RA. EVENING ASSESSMENT COMPLETE. SCHEDULED MEDS ADMIN PER EMAR. PT REPORTS PAIN TOLERABLE 2/10. DENIES PRN FOR PAIN WHEN OFFERED. DENIES NAUSEA. CMS INTACT ON LEFT SIDE. LLE IN IMMOBILIZER. LUE ELEVATED ON PILLOW WITH ICE PACK. SCD/TEDS/HP IN PLACE. FRESH ICE TO CRYO. TELE #8 WITH CPOX. HOB ELEVATED. PERSONAL BELONGINGS IN REACH. PT DENIES QUESTIONS OR CONCERNS. CALL LIGHT IN REACH.
--- NOTE | 2022-06-07 22:29 | NUR ---
RT IN TO PLACE CPAP. SpO2 98%. HR 90-100'S.
--- NOTE | 2022-06-07 23:05 | NUR ---
CPAP ALARMING. PT HAD REMOVED MASK DUE TO BEING UNCOMFORTABLE. PT REPORTS GENERALIZED DISCOMFORT AND BEING UNABLE TO SLEEP. PRN FOR PAIN ADMIN PER EMAR. PT AGREEABLE TO TRY CPAP AGAIN. NO FURTHER NEEDS.
--- NOTE | 2022-06-08 00:28 | NUR ---
CPAP ALARMING. PT REMOVED MASK, REQUESTS A BREAK FROM IT. 2L/NC PLACED.
--- NOTE | 2022-06-08 01:40 | NUR ---
PT RESTING IN BED WITH EYES CLOSED. RESPIRATIONS EVEN. 2L/NC IN PLACE. SpO2 100%. HR 90'S.
--- NOTE | 2022-06-08 04:27 | NUR ---
PT AWAKE IN BED. TELE BATTERY REPLACED. REPORTS SLIGHT PAIN IN LEFT WRIST. LEFT ARM ELEVATED ON PILLOW. EDEMA IN LEFT HAND UNCHANGED FROM PREVIOUS ASSESSMENT. FRESH ICE PACK PLACED. PT DENIES PRN FOR PAIN WHEN OFFERED. FRESH ICE TO CRYO ON LEFT KNEE. SCD TO RIGHT LEG. TEDS/HP IN PLACE. CMS INTACT IN UPPER AND LOWER LEFT EXTREMITY. O2 2L/NC IN PLACE. SpO2 99%. PENNY PATENT WITH CLEAR YELLOW URINE. PT DENIES FURTHER NEEDS. CALL LIGHT IN REACH. BED ALARM FOR SAFETY.
--- NOTE | 2022-06-08 06:36 | NUR ---
PT RESTING WITH EYES CLOSED. AWAKENS EASILY. PT REMOVED OXYGEN. SpO2 MID 90'S ON RA. DENIES SOB. DENIES PAIN OR NAUSEA. VS AND I&O OBTAINED. NO NEEDS AT THIS TIME. BED ALARM FOR SAFETY. CALL LIGHT IN REACH.
--- NOTE | 2022-06-08 07:26 | NUR ---
RECEIVED REPORT FROM [facility] NURSE. PT IS A/O, RESPIRATIONS EVEN AND REGULAR. DENIES PAIN ATT. CRYO CUFF IN PLACE ON LL. LEFT ARM ELEVATED. PT DENIES NEEDS/COMPLAINTS ATT. CALL LIGHT WITHIN REACH.
--- NOTE | 2022-06-08 07:35 | NUR ---
PT ASSESSMENT COMPLETED. PT IS A/O, RESPIRATIONS EVEN AND REGULAR. HEEL PROTECTORS, SCD ON R LEG, COMPRESSION STOCKINGS, AND BRACE TO LL IN PLACE. LEFT ARM IS SLIGHTLY ELEVATED ON PILLOW. PT DENIES PAIN ATT. CALL LIGHT WITHIN REACH.
--- NOTE | 2022-06-08 08:31 | NUR ---
MEDICATION ADMINISTRATION COMPLETED. PT DENIES NEEDS/COMPLAINTS ATT.
--- NOTE | 2022-06-08 09:15 | NUR ---
ASSISTED PT TO BEDSIDE COMMODE. 2 PERSON ASSIST. NO BM ATT. PT WAS ABLE TO PIVOT TO CHAIR WITH 2 PA AND WALKER.
--- NOTE | 2022-06-08 10:47 | NUR ---
ROUND ON PT. PT IS SITTING UP IN CHAIR. A/O, RESPIRATIONS EVEN AND REGULAR. VISITOR AT BEDSIDE.
--- NOTE | 2022-06-08 11:14 | NUR ---
SPOKE TO PATIENT ABOUT THE DISCHARGE PLAN. PATIENT WOULD LIKE TO GO TO [facility] FOR REHAB. [facility] DOES NOT HAVE A BED AT THIS TIME. CLINIAL UPDATEDS FOR THE LAST 2 DAYS SENT TO [facility].
--- NOTE | 2022-06-08 11:34 | NUR ---
PT RESTING PAIN MEDICATION. RATES PAIN 6/10 TO LEFT ARM. PT IS A/O, SITTING IN CHAIR. FAMILY AT BEDSIDE. CALL LIGHT WITHIN REACH.
--- NOTE | 2022-06-08 13:19 | NUR ---
PT ASSESSMENT COMPLETED. CRYO CUFF ICE REFILLED. PT STATES HE WOULD LIKE TO CONTINUE TO SIT UP IN CHAIR. LEGS ARE ELEVATED. CALL LIGHT WITHIN REACH.
--- NOTE | 2022-06-08 13:59 | NUR ---
PT ALERT, ORIENTED AND SITTING IN CHAIR WITH LE ELEVATED AND O2 NC IN USE. PT SEEMS TO BE ENJOYING OUT OF BED AND IN CHAIR. REQUESTED A VISIT FROM [facility]. WILL INFORM HIM. PT WOULD ALSO LIKE TO VIEW REFLECTIONS. CONTACTED [facility]. HE WILL WORK TO MAKE IT HAPPEN. PTS' BROTHER IN TO VISIT. GAVE PT A BLESSING AND WILL FOLLOW
--- NOTE | 2022-06-08 14:36 | NUR ---
ASSISTED PT WITH PATIENT EXERCISES. PT IS A/O, SOB WITH EXERTION. PT REMAINS AT BEDSIDE.
--- NOTE | 2022-06-08 15:41 | NUR ---
ROUNDED ON PT. PT APPEARS TO BE SLEEPING COMFORTABLY IN CHAIR. RESPIRATIONS EVEN AND REGULAR. CRY CUFF IN PLACE. LEFT ARM ELEVATED WITH PILLOW. CALL LIGHT WITHIN REACH.
--- NOTE | 2022-06-08 17:22 | NUR ---
MEDICATION ADMINISTRATION COMPLETED. PT IS A/O, SITTING IN CHAIR. ASSISTED PT WITH MEAL SET UP. CALL LIGHT WITHIN REACH.
--- NOTE | 2022-06-08 21:58 | NUR ---
IN PT ROOM FOR ROUNDING. PT RESTING ON BACK, RESPIRATORY THERAPY IN ROOM FOR PLACEMENT OF CPAP. PT CALL LIGHT IN REACH
--- NOTE | 2022-06-08 22:38 | NUR ---
RECEIVED BEDSIDE REPORT FROM OFFGOING SHIFT, HOURLY ROUNDING INITIATED
--- NOTE | 2022-06-09 02:30 | NUR ---
IN pt room for rounding. pt resting on back with HOB elevated. Pt is resting with eyes closed, breathing even and unlabored. Pt removed CPAP device, is on CPOX for monitoring. Pt has call light in reach, no complaint of or indication of pain.
--- NOTE | 2022-06-09 03:46 | NUR ---
In pt room for rounding. pt resting on back, HOB elevated, breathing even and unlabored with no indication of pain or discomfort. Call light in reach
--- NOTE | 2022-06-09 05:49 | NUR ---
In pt room for rounding. pt resting on back with eyes closed, breathing even and unlabored with momentary pauses. pt is connected to CPOX for monitoring. Pt has no indication or complaint of pain at this time, call light in reach.
--- NOTE | 2022-06-09 07:21 | NUR ---
RECIEVED SHIFT REPORT. PT AWAKE IN BED, ONLY REQUEST WAS UNSWEETED TEA. BRACE ON LEFT LEG IN PLACE. POLARCARE IN PLACE TO LEFT ELBOW. PT HAS NO COMPLAINTS AT THIS TIME. CALL LIGHT IN REACH
--- NOTE | 2022-06-09 09:18 | NUR ---
MORNING ASSESSMENT COMPLETE. PT SITTING IN RECLINER, DENIES PAIN BUT RATES 1/10. CMS INTACT IN ALL EXT. LEFT LEG EMOBILIZER IN PLACE, LEFT ARE ANDREW WRAP CDI, POLARCARE IN PLACE. PENNY PATENT. TELE IN PLACE. CALL LIGHT IN REACH. PT DENIES ANY NEEDS AT THIS TIME.
--- NOTE | 2022-06-09 10:00 | NUR ---
Notified by ARYA at [facility] they will accept this pt tomorrow at 1 pm. Called and schedule the WC van for their open at 12:15. They will fish bait picker a wc for transport. Attempted to call and update, no answer.
[2022-06-09] MEDS ORDERED: HYDROCODON-ACE1 EA11 PO (11:55)
--- NOTE | 2022-06-09 12:31 | NUR ---
PT IN RECLINER, AT THIS TIME. CALL LIGHT IN REACH. DENIES FURTHER NEEDS
--- NOTE | 2022-06-09 13:10 | NUR ---
Spoke with pts and brother. Updated he will go to [facility] tomorrow per keerthi mclean. states she has been very ill and may not be able to get him clothing for a few days. Let her know we can send him in a gown. When she does get clothing he will need clothing to go over his braces a cast. She denies other needs or questions. Patricia from the clinic was in my office and Cynthia was able to speak with her.
--- NOTE | 2022-06-09 13:24 | NUR ---
PT AWAKE IN RECLINER, FAMILY AT BEDSIDE. CALL LIGHT IN REACH
--- NOTE | 2022-06-09 13:28 | NUR ---
PT SITTING IN CHAIR, SEEMS SOMEWHAT MORE CONFUSED TODAY THAN YESTERDAY. PT SAID HE IS WAITING FOR A VISIT FROM [facility] TODAY. PT REQUESTED PRAYER.
--- NOTE | 2022-06-09 14:00 | NUR ---
Orders completed by Amaury Victor and Dr. Tolbert. Orders, Pasrr, RX, Dc summary faxed. Spoke with [facility], pt does not need a Covid test, they will test when he arrives. There was a question on the home meds of nasal spray, med was cancelled by as pt states he has used in over 6 months. Order faxed to [facility].
--- NOTE | 2022-06-09 14:35 | NUR ---
pt resting in bed, family at bedside. call light in reach
--- NOTE | 2022-06-09 19:35 | NUR ---
ASSISTED PT. TO BSC WITH PRIMARY RN. PT. ROOM TIDIED AND ORGAIZED. PT. GIVEN PRIVACY, CALL LIGHT LEFT WITHIN REACH.
--- NOTE | 2022-06-09 19:50 | NUR ---
PT. ASSISTED BACK INTO BED BY THIS SALESPERSON WIGS AND RN. PT. ENCOURAGED TO DO 10 BREATHS WITH IS. PT BACK IN BED AND POSITIONED COMFORTABLY, ROOM TIDIED, PENNY EMPTIED. I/OS AND VITALS SIGNS CHARTED. PATIENT PROVIDED WITH FRESH ICE WATER AND JAIMIE TEA. CALL LIGHT LEFT WITHIN REACH. NO OTHER IMMEDIATE CONCERNS OR NEEDS AT THIS TIME.
--- NOTE | 2022-06-09 21:00 | NUR ---
IN PT ROOM FOR ROUNDING - PT ALERT AND ORIENTED, ABLE TO MAKE NEEDS KNOWN. PT GIVEN EVENING MEDICATIONS AND READJUSTED IN BED WITH NO COMPLAINT OF PAIN OR DISCOMFORT. PT CALL LIGHT IN REACH.
--- NOTE | 2022-06-10 00:02 | NUR ---
IN PT ROOM FOR ROUNDING. PT RESTING IN BED, EYES CLOSED, BREATHING EVEN AND UNLABORED. PT HAS NO INDICATION OF PAIN, CALL LIGHT IN REACH
--- NOTE | 2022-06-10 00:32 | NUR ---
RECEIVED BEDSIDE REPORT FROM OFFGOING SHIFT. HOURLY ROUNDING INITIATED
--- NOTE | 2022-06-10 01:01 | NUR ---
IN PT ROOM FOR ROUNDING. PT RESTING ON BACK, HOB SLIGHTLY ELEVATED, BREATHING EVEN AND UNLABORED WITH EYES CLOSED. PT SHOWS NO INDICATION OF PAIN OR DISCOMFORT, CALL LIGHT IN REACH.
--- NOTE | 2022-06-10 03:58 | NUR ---
In pt room for rounding. Pt resting on back with eyes closed, breathing even and unlabored, no indication of pain or discomfort. call light in reach
--- NOTE | 2022-06-10 07:08 | NUR ---
in pt room for rounding. pt resting on back, vs taken, stable. pt has no complaint of pain, readjusted in bed call light in reach
--- NOTE | 2022-06-10 07:21 | NUR ---
RECIEVED SHIFT REPORT. PT RESTING IN BED, EYES CLOSED, BREATHING EVEN AND UNLABORED. CALL LIGHT IN REACH.
--- NOTE | 2022-06-10 07:34 | OR ---
[facility] [address], [place] [address] Signed DATE OF OPERATION: 06/06/2022 SURGEON: Narciso Parnell MD PREOPERATIVE DIAGNOSES: 1. Comminuted left olecranon fracture. 2. Tibial plateau fracture, left. POSTOPERATIVE DIAGNOSES: 1. Comminuted left olecranon fracture. 2. Tibial plateau fracture, left. PROCEDURE PERFORMED: Open reduction and internal fixation of left olecranon. ATTENDANCE SECRETARY: Patricia Elizalde PA-C. Patricia was present and critical for all portions of the procedure. ANESTHESIA: General. BLOOD LOSS: None. TOURNIQUET TIME: 37 minutes. IMPLANTS: Raeann small olecranon plate with 7 screws. BRIEF HISTORY: Dm is an 81-year-old gentleman with a history of multiple ground level falls. He was admitted to my service on Monday after coming in for the olecranon fracture not having found the tibial plateau fracture. He continued to be unable to walk on it at home. He was brought back on Monday where the CT scan showed a minimally displaced fracture of the left lateral tibial plateau. He was admitted to my service for pain control and inability to take care of himself at home with plans for surgery today after implants were ordered in from outside. Risks, benefits, and alternatives were discussed. He elected to proceed. Electronically Signed By: NARCISO PARNELL MD 06/10/22 0734 PATIENT NAME: DM ROMERO OPERATIVE REPORT DATE OF : 36 REPORT #: [id number] PHYSICIAN: NARCISO PARNELL MD PCP: REJI VELARDE MD REPORT IS CONFIDENTIAL AND NOT TO BE RELEASED WITHOUT AUTHORIZATION [facility] [address], [place] [address] Signed DESCRIPTION OF PROCEDURE: Once consent was obtained, he was taken to the operating room. After adequate anesthesia, he was placed on the operating room table with an arm table. The arm was prepped and draped in a standard sterile fashion. Tourniquet was placed. The arm was exsanguinated using Esmarch bandage and tourniquet inflated to 200 mmHg. A posterior midline incision with curving around the olecranon was taken through the skin and subcutaneous tissue and down to the fascia. The soft tissue was elevated medially. The fracture was then immediately identified and cleaned of all debris. The fracture was then reduced using a tenaculum clamp under image intensifier guidance. Once we had it properly reduced, a 1.6 K-wire was then introduced from the tip of the olecranon into the coronoid holding the fracture secure. Because of the comminuted fracture and the fairly poor bone quality, we elected to go ahead with the plate. The Raeann plate was then fashioned to fit the posterior aspect of the ulna and olecranon. This was centered using the center hole and the screw was placed to hold the plate. It was then adjusted under image intensifier guidance. The screw from the tip of the olecranon was placed through the plate anteriorly engaging the body of the coronoid. Once this was completed, three more screws were placed proximally and two screws were placed into the tip of the olecranon from the plate. Two remaining screw holes were left open. This fracture was stable at the end of the procedure. We then irrigated the wound, closed it with 2-0 Monocryl and dylan and it was dressed with Allevyn dressing and a posterior splint. Throughout the procedure, his blood pressure remained in the 50s to 70s systolic. Because his tibial plateau fracture was nondisplaced to minimally displaced, we felt that the risk benefit ratio dictated stopping and not proceeding with open reduction and internal fixation because I did not think it was essential. The patient was then awakened from anesthesia, taken to the recovery room in satisfactory condition. All sponge, needle, and instrument counts were correct. Narciso Parnell MD BA/TONIAL /[id number] Electronically Signed By: NARCISO PARNELL MD 06/10/22 0734 PATIENT NAME: DM ROMERO OPERATIVE REPORT DATE OF : 38 REPORT #: [id number] PHYSICIAN: NARCISO PARNELL MD PCP: REJI VELARDE MD REPORT IS CONFIDENTIAL AND NOT TO BE RELEASED WITHOUT AUTHORIZATION [address] [address] Signed Copies: ~ Electronically Signed By: NARCISO PARNELL MD 06/10/22 0734 PATIENT NAME: DM ROMERO OPERATIVE REPORT DATE OF : 38 REPORT #: [id number] PHYSICIAN: NARCISO PARNELL MD PCP: REJI VELARDE MD REPORT IS CONFIDENTIAL AND NOT TO BE RELEASED WITHOUT AUTHORIZATION
--- NOTE | 2022-06-10 08:06 | NUR ---
PATIENT IS GOING TO [facility] TODAY AT 12:15 VIA WHEELCHAIR VAN. CLINICAL ADMISSIONS MANAGER TEXT ARYA AT [facility] TO FIND OUT IF COVID TEST NEEDED FOR TRANSPORT TO [facility] AND [facility] STATES IT IS NO LONGER NEEDED. LAST COVID TEST WAS 06-03-22.
--- NOTE | 2022-06-10 08:41 | NUR ---
MORNING ASSESSMENT COMPLETE. PT AWAKE IN CHAIR EATING BREAKFAST. DENIES PAIN AND NUMBNESS/TINGLING. CMS INTACT. DRESSING TO LEFT LEG CDI, IMMOBILIZED. DRESSING TO LEFT ARM CDI. UPDATED PT ON POC WITH REMOVING STITCHES ABOVE LEFT EYE AND REMOVING CATHETER. NO QUESTIONS. PT DENIES FURTHER NEEDS. CALL LIGHT IN REACH
--- NOTE | 2022-06-10 11:43 | NUR ---
Candis JACKSON IN WITH PT AND HIW . WILL CHECK BACK
--- NOTE | 2022-06-10 12:00 | NUR ---
REMOVED SUTURES ABOVE LEFT EYE PER DAVID KAMARA, VERBAL ORDER. PT TOLERATED WELL. NO SIGN OF INFECTION.
--- NOTE | 2022-06-10 12:20 | NUR ---
PT DRESSED, EMMOBILIZER ON LEFT LEG, SLING ON LEFT ARM. PT USED BSC, WAS ABLE TO HAVE A BM AND URINATED. PT TAKEN TO WHEELCHAIR VAN WITH RIG SUPERINTENDENT.
--- NOTE | 2022-06-10 12:39 | NUR ---
CALLED BASHIR TO GIVE REPORT, SPOKE WITH SERENITY. ALL QUESTIONS ANSWERED AT THIS TIME.
== END 2022-06-10 12:25 | DRG 511 ==
LOC: ED 10:05 → CCU 12:04 → MS 12:04 → CCU 06-06 13:15 → MS 06-07 15:45
PROVIDERS: ADMIT Specialist; ATTEND Specialist
PROC: 0T9B70Z Drainage of Bladder with Drainage Device, Via Natural or Artificial Opening (ICD-10-PCS; 2022-06-03)
PROC: 0PSL04Z Reposition Left Ulna with Internal Fixation Device, Open Approach (ICD-10-PCS; principal; 2022-06-06 10:00)
DX: S52.022A Displaced fracture of olecranon process without intraarticular extension of left ulna, initial encounter for closed fracture (principal); I48.20 Chronic atrial fibrillation, unspecified; S82.142A Displaced bicondylar fracture of left tibia, initial encounter for closed fracture; J98.11 Atelectasis; I50.9 Heart failure, unspecified; I95.9 Hypotension, unspecified; Z20.822 Contact with and (suspected) exposure to COVID-19; I08.2 Rheumatic disorders of both aortic and tricuspid valves; E78.00 Pure hypercholesterolemia, unspecified; N40.1 Benign prostatic hyperplasia with lower urinary tract symptoms; R33.8 Other retention of urine; I25.10 Atherosclerotic heart disease of native coronary artery without angina pectoris; K21.9 Gastro-esophageal reflux disease without esophagitis; E86.1 Hypovolemia; K52.9 Noninfective gastroenteritis and colitis, unspecified; N30.90 Cystitis, unspecified without hematuria; R63.5 Abnormal weight gain; Z68.23 Body mass index [BMI] 23.0-23.9, adult; M54.2 Cervicalgia; G89.29 Other chronic pain; R55 Syncope and collapse; Z86.16 Personal history of COVID-19; Z88.2 Allergy status to sulfonamides; Z87.440 Personal history of urinary (tract) infections; Z90.49 Acquired absence of other specified parts of digestive tract; Z90.89 Acquired absence of other organs; Z98.890 Other specified postprocedural states; Z79.51 Long term (current) use of inhaled steroids; Z79.899 Other long term (current) drug therapy; W18.39XA Other fall on same level, initial encounter
CPT/HCPCS: 36415; 71045; 71260; 73070; 73560; 73700; 80048; 80053; 81001; 83735; 84439; 84443; 85025; 85610; 87077; 87088; 87186; 87502; 93005; 93010; 94640; 94660; 94760; 94762; 97110; 97162; 97166; 97530; A9270; C9803; J0690; J0696; J1100; J1160; J1885; J2001; J2370; J2704; J2795; J3475; J7120; J7121; Q9967; U0003

== ENCOUNTER 2023-10-22 16:18 | Observation (INO) | payer MEDICARE, OTHER ==
[~2023-10-22] VITALS: Ht 177.8 cm; Wt 76.2 kg
[~2023-10-22 16:18] MED LIST changes: +AMOXICILLIN500 M1 PO; +CARVEDILOL3.125 MG PO; +CEFAZOLIN SODIUM 2 GM/20 ML SYR IV SCH; +CENTRUM SILVER1 EAC6 PO; +DILTIAZEM HCL30 MG PO; +HYDROCODON-ACE1 EA11 PO; +IPRAT-ALBUT 0.5-3 ML INH; +MAGNESIUM OXID400 M1 PO; +OXYCODONE-ACET1 EAC1 PO; +PREDNISONE20 MG PO; +VITAMIN D3125 MC1 PO
[2023-10-22] MEDS ORDERED: CEFAZOLIN SODIUM 2 GM/20 ML SYR IV ONE (17:00)
[2023-10-22] MEDS ORDERED: DIPHTH,PERTUSS(ACELL),TET VAC 0.5 ML SYRINGE IM ONE (17:00)
[2023-10-22] MEDS ORDERED: HYDROmorphone HCL 1 MG/ML SYR IV ONE ×2 (17:15→23:15)
[2023-10-22 18:24] LABS: HEMOGLOBIN 13.5 g/dL (12.0-18.0)
[2023-10-22 18:30] LABS: BASOPHILS 0.3 % (0-2); EOSINOPHILS 3.6 % (0-6); HEMATOCRIT 41.6 % (35.0-50.0); LYMPHOCYTES 27.1 % (24-44); MCH 29.9 (27-36); MCHC 32.5 g/dl (30-36); MCV 92.2 fl (81-99); MONOCYTES 8.8 % (0-12); NEUTROPHILS 60.2 % (39-80); PLATELET COUNT 224 K/uL (140-440); RBC 4.51 M/ul (4.3-5.7); RDW 13.7 (10.5-15.0)
[2023-10-22 18:33] LABS: ALBUMIN 3.7 g/dL (3.4-5.0); ALBUMIN/GLOBULIN RATIO 0.93 (1.1-2.4); ANION GAP 9.5 (7-21); BILIRUBIN, TOTAL 0.4 ng/dL (0.2-1.0); BUN/CREATININE RATIO 10.23 (6.0-28.6); CALCIUM 9.4 mg/dL (8.5-10.1); CREATININE, SERUM 1.27 mg/dL (0.70-1.30); POTASSIUM 4.5 mmol/L (3.5-5.1); PROTEIN, TOTAL 7.7 g/dL (6.4-8.2)
[2023-10-22] MEDS ORDERED: HYDROCODONE/ACETA 7.5/325 TAB PO PRN (18:45)
[2023-10-22 18:56] LABS: ABO O; ANTIBODY SCREEN NEGATIVE; RH POSITIVE
--- NOTE | 2023-10-22 19:30 | NUR ---
REPORT RECEIVED FROM ER NURSE, PT ALERT AND ORIENTENED, RIGHT HAND FINGERS WARM, PINK, CAP REFILL <3 SEC, DRESSING OVER RIGHT LOWER ARM SITE DRY CAP REFILL <3 SEC, DRESSING OVER SITE DRY, PT TRANSPORTED TO ROOM 120 VIA STRETCHER.
[2023-10-22 19:37] VITALS: BP 142/90
--- NOTE | 2023-10-22 19:40 | NUR ---
PT TRANSFERED TO BED, ADMIT IN PROGRESS PER ELVIN RN, RIGHT ARM ELEVATED ON 2 PILLOWS. CMS REMAIN THE SAME AT THIS TIME.
--- NOTE | 2023-10-22 20:00 | NUR ---
pt ORIENTED TO ROOM, CALL LIGHT. ADMISSION HISTORY COMPLETE. pt STATES WEARS HOME CPAP, REFUSES HOSPITAL CPAP. WILL HAVE BRING IN OWN CPAP IF STAYS TWO NIGHTS. BED ALARM ON FOR SAFETY. RIGHT ARM ELEVATED ON PILLOW.
--- NOTE | 2023-10-22 20:15 | NUR ---
SL PATENT WITH GOOD BLOOD RETURN IN LEFT LOWER ARM, FLUSHES WELL. SL IN LEFT AC, LEAKING AND WITH NOT BLOOD RETURN, SL D'ZEYAD INTACT, PRESSURE DRESSING TO SITE, NO BLEEDING NOTED.
--- NOTE | 2023-10-22 20:21 | NUR ---
PT C/O PAIN IN RIGHT ARM, REQUESTING PAIN MED, PT MEDICATED WITH 1 NORCO PER ORDER WITH LIGHT SNACK AND WATER GIVEN, PT DENIES NAUSEA AT THIS TIME.
--- NOTE | 2023-10-22 20:35 | NUR ---
TC RECEIVED FROM DR OSEI, ORDERS RECEIVED FOR IVF LR AT 125ML/HR TO START AT 0005 WHEN PT MADE NPO, ORDERS RECEIVED FOR IV DILAUDID AND ZOFRAN TO BE USED PRN, DR SOEI STATES CXR NOT NECESSARY FOR AM SURGERY, PLAN TO COMPLETE EKG PREVIOUSLY ORDERED. PT MAY HAVE ICE TO RIGHT LOWER EXTREMITY, RIGHT ARM ELEVATED ON 2 PILLOWW, ICE PACK TO SIDE OF RIGHT ARM, PT GIVEN SNACK AND PO FLUIDS.
[2023-10-22] MEDS ORDERED: ondansetron HCL 4 MG TAB PO PRN (20:45)
[2023-10-22] MEDS ORDERED: HYDROmorphone HCL 1 MG/ML SYR IV PRN ×2 (20:45→23:15)
[2023-10-22] MEDS ORDERED: SENNOSIDES 1 TAB PO SCH (21:00)
--- NOTE | 2023-10-22 21:18 | NUR ---
PT REQUESTING ADDITIONAL PAIN MEDICATION FOR RIGHT ARM PAIN, PT MEDICATED WITH ADDITIONAL NORCO PER ORDER, VISHNU RT IN TO COMPLETE EKG.
[2023-10-22] MEDS ORDERED: TRANEXAMIC ACID 2,000 MG in SODIUM CHLORIDE 0.9% 100 ML IV ONE (21:36)
--- NOTE | 2023-10-22 21:44 | NUR ---
PT ASSISTED UP TO BR TO ATTEMPT TO VOID AND HAVE A BM, 1PA, RN REMAINS IN ROOM WHILE PT UP TO BR, PT DENIES DIZZINESS AT THIS TIME.
--- NOTE | 2023-10-22 21:50 | NUR ---
PT REPORTS HE VOIDED (MISSED VOID), AND PT HAD MODERATE AMOUNT SOFT BROWN STOOL. PT BACK TO BED, RIGHT ARM SUPPORTED, BED ALARM BACK ON, CALL LIGHT IN REACH.
--- NOTE | 2023-10-22 22:40 | NUR ---
CALL LIGHT ANSWERED. pt REPORTS PAIN IN RIGHT WRIST 9-01/13. PRN PAIN MEDICATION ADMINISTERED. CPOX PLACED ON pt, SPO2 88-90% ON RA. 1L OXYGEN BY NC APPLIED. RT NOTIFIED. TEMPERATURE IN ROOM ADJUSTED. pt REFUSES ICE PACK. pt RESTING IN BED WITH CALL LIGHT IN REACH.
--- NOTE | 2023-10-22 23:05 | NUR ---
PT REMAINS IN PAIN, 10/10 IN RIGHT WRIST, PT SWEATY, VS COMPLETED, ARM ELEVATED ON PILLOWS WITH ICE, CMS CHECK STABLE, FINGERS WARM WITH MOVEMENT, SOME NUMBNESS/TINGLING REMAIN, CPOX PLACED ON PT, TC TO DR OSEI TO UPDATE ON PAIN STATUS, [facility] CHECKS, ORDERS RECEIVED FOR DILAUDID 0.5MG IV NOW AND DECREASE FREQUENCY OF DOSING OF DILAUDID TO Q1 HOUR PRN.
[2023-10-22 23:07] VITALS: BP 105/68
--- NOTE | 2023-10-22 23:18 | NUR ---
PT REMAINS AWAKE, ON OXYGEN AT 1L/NC PER TO SAT 88%, SAT NOW UP TO 97%, RESP RATE 15/MIN, PT C/O RIGHT WRIST PAIN 12/13, MEDICATED WITH DILAUDID 0.5MG IV PER ORDER, ARM REMAINS ELEVATED, IV SITE RIGHT FOREARM INTACT.
--- NOTE | 2023-10-22 23:39 | NUR ---
PT APPEARS TO SLEEP, RESP EVEN AND REG, CPOX AT 97%, OXYGEN REMAINS ON AT 1L/NC, LR STARTED AT 125ML/HR, SITE INTACT, PT MADE NPO FOR AM SURGERY.
[2023-10-23] VITALS (11 sets, daily range): BP systolic 102–142; BP diastolic 62–87
[2023-10-23] MEDS ORDERED: LACTATED RINGER'S 1,000 ML IV SCH (00:05)
--- NOTE | 2023-10-23 00:17 | NUR ---
PT RESTING WITH EYES CLOSED, OPENS EYES SPONTANEOUSLY, PT STATES HE IS FEELING MUCH BETTER AND RATES HIS PAIN 3/10, DENIES NEED FOR ADDITIONAL PAIN MED AT THIS TIME. CPOX AT 97%, IV INFUSING WELL, OXYGEN ON AT 1L/NC.
[2023-10-23] MEDS ORDERED: CEFAZOLIN SODIUM 2 GM/20 ML SYR IV SCH (01:30)
--- NOTE | 2023-10-23 01:40 | NUR ---
PT RESTING, ANTIBODIC GIVEN PER ORDER, PT STATES PAIN 3/10 BUT DENIES NEED FOR ADDITIONAL PAIN MED, CMS CHECKS UNCHANGED, ABLE TO WIGGLE FINGERS ON RIGHT HAND, PINK AND WARM, ELEVATED ON PILLOWS WITH ICE.
--- NOTE | 2023-10-23 02:10 | NUR ---
VS DONE, STABLE, PT DENIES NEED FOR PAIN MED AT THIS TIME, PAIN LEVEL STILL AT 3/10.
--- NOTE | 2023-10-23 03:32 | NUR ---
PT AWAKE AND ALERT, STATES HIS PAIN IS STARTING TO COME BACK ABOUT 410, PT REQUEST MEDICATION, MEDICATED WITH DILAUDID 0.5MG IV, AFTER MEDICATED PT STATES HE WANTS TO GET UP TO VOID, 2 PERSON ASSIST, TO STAND AT BEDSIDE, PT UNABLE TO VOID AFTER SEVERAL MINUTES, BACK TO BED, ATTEMPTING TO REST.
--- NOTE | 2023-10-23 06:15 | NUR ---
PT ATTEMPTING TO VOID AND UNABLE TO, BLADDER SCANNED PER SINTA DIE CASTING MACHINE OPERATOR FOR 458ML RESIDUAL.
--- NOTE | 2023-10-23 06:23 | NUR ---
TC TO DR OSEI TO REPORT PT'S INABILITIY TO VOID WITH RESIDUAL OF 458ML PER BLADDER SCANNER, ORDERS RECEIVED TO PLACE PENNY CATH.
[2023-10-23] MEDS ORDERED: LIDOCAINE 2% VISCOUS 6 ML SYR TOP ONE (06:30)
--- NOTE | 2023-10-23 06:40 | NUR ---
ANTISEPTIC WIPE DOWN COMPLETED, FRESH GOWN ON PT, PENNY PLACED AFTER LIDOCAINE GEL USED, PT TOLERATED PLACEMENT, PENNY DRAINING YELLOW URINE, PT ATTEMPTING TO REST, PT DENIES NEED FOR PAIN MED AT THIS TIME, PT RESTING.
[2023-10-23] MEDS ORDERED: TRANEXAMIC ACID 2,000 MG in SODIUM CHLORIDE 0.9% 100 ML IV SCH (07:00)
--- NOTE | 2023-10-23 07:57 | NUR ---
MORNING ASSESSMENT COMPLETE. PATIENT HAS 5/10 RIGHT WRIST PAIN AND GIVEN 0.5MG OF IV DILAUDID FOR THIS. RIGHT WRIST IS SPLINTED AND WRAPPET, ELEVATED ON X2 PILLOWS, ICE TO WRIST. ORAL CARE DONE. PATIENT IS ON 1L OF O2 (NOT CHRONIC) SATS VARY FR 98 TO 93% POST PAIN MEDICATIONS. PATIENT IS READY FOR SURGERY, FLUIDS, ABX, TRANSX HANGING ON BED. SCD'S ON. I/S AT BEDSIDE. CHART IS COMPLETE FOR SURGERY. NO OTHER NEEDS AT THIS TIME.
[2023-10-23] MEDS ORDERED: BUPIVACAINE HCL 0.5% 30 ML VIAL ONE (08:44)
[2023-10-23] MEDS ORDERED: propofoL 200 MG/20 ML VIAL ONE ×2 (08:47→08:48)
[2023-10-23] MEDS ORDERED: Ropivacaine HCl 0.5% 30 ML VIAL ONE (08:47)
[2023-10-23] MEDS ORDERED: fentaNYL citrate 100 MCG/2 ML VIAL ONE (08:48)
--- NOTE | 2023-10-23 08:52 | NUR ---
I HELPED PATIENT WASH HIS FACE AND DID ORAL CARE.
[2023-10-23] MEDS ORDERED: LIDOCAINE HCL 2% 20 MG/ML VIAL INJ ONE (08:54)
--- NOTE | 2023-10-23 08:59 | NUR ---
PATIENT TO SURGER 0830 WITH [facility] FREITAS.
[2023-10-23] MEDS ORDERED: TAMSULOSIN HCL 0.4 MG CAP PO SCH (09:00)
[2023-10-23] MEDS ORDERED: ePHEDrine sulfate 50 MG/ML AMP ONE (09:34)
[2023-10-23] MEDS ORDERED: DEXAMETHASONE SOD PHOS 4 MG/ML VIAL ONE (10:12)
--- NOTE | 2023-10-23 10:57 | NUR ---
PATIENT CURRENTLY IN SURGERY. WILL COMPLETE ASSESSMENT AT LATER TIME.
--- NOTE | 2023-10-23 11:01 | NUR ---
UR CLINICAL REVIEW: 2 MN FOR [facility] INPT CRITERIA MEDICARE INPT 10/23/23 @ 0858 WILL UPDATE REG NO AUTH REQUIRED PER MEDICARE GUIDELINES DISCHARGE PENDING FURTHER EVALUATION
[2023-10-23] MEDS ORDERED: NALOXONE HCL 0.4 MG SYR IV PRN (12:15)
[2023-10-23] MEDS ORDERED: ondansetron HCL 4 MG/2 ML VIAL IV PRN (12:15)
[2023-10-23] MEDS ORDERED: MEPERIDINE HCL 25 MG/1 ML VIAL IV PRN ×2 (12:15)
[2023-10-23] MEDS ORDERED: fentaNYL citrate 100 MCG/2 ML VIAL IV PRN (12:15)
--- NOTE | 2023-10-23 12:29 | NUR ---
REPORT FROM MAGDI MCKENZIE, PACU AT 1215.
[2023-10-23] MEDS ORDERED: OXYCODONE HCL 5 MG TAB PO PRN (12:30)
--- NOTE | 2023-10-23 12:51 | NUR ---
PATIENT IS SITTING UP IN BED TO EAT LUNCH. RIGHT ARM IN IN A SLING, ELEVATED ON 2 PILLOWS, ICE IN PLACE. DRESSING IS CDI. PATIENT RATES RIGHT ARM PAIN 2/10, FINGERS ARE WARM, BUT NUMB FROM BLOCK. PENNY CATHETER INTACT, FLOMAX 0.8MG GIVEN WITH LUNCH. PATIENT IS ON 2L 02 VIA NC FOR 98% SATS, PATIENT IS SLEEPY OFF AND ON. FAMILY IS IN ROOM WITH PATIENT AT THIS TIME.
--- NOTE | 2023-10-23 13:44 | NUR ---
SECOND SET OF POST OP VITALS COMPLETE. PATIENT DENIES NEEDS. PLAN TO D/C PENNY CATHETER AT 1600. PATIENT ON ROOM AIR AT THIS TIME 90-91% PATIENT DOES WEAR A CPAP AT HOME AT NIGHT.
--- NOTE | 2023-10-23 15:13 | NUR ---
VISITED DURING SPIRITUAL CARE ROUNDS. PT APPEARED TO BE SLEEPING. DID NTO DISTURB. PROVIDED PRAYER.
--- NOTE | 2023-10-23 15:36 | NUR ---
PATIENT ALERT AND ORIENTED. SPOUSE AT BEDSIDE. PATIENT LIVES IN SINGLE LEVEL HOME. DOES HAVE 2 STEPS TO GET INSIDE THAT HE NORMALLY HAS NO ISSUES WITH, THEY HAVE HANDRAILS. PATIENT STATES HE HAS A CANE, WALKER, CPAP AND WHEELCHAIR IF NEEDED AT HOME. STATES HE NORMALLY DRIVES, SPOUSE IS ABLE TO ASSIST. DENIES FINANCIAL ISSUES. DENIES NEEDS AT HOME CURRENTLY. DISCUSSED POTENTIAL NEED FOR PT, STATES HE DOESN'T CARE WHERE HE WOULD DO THERAPY IF HE NEEDS IT OUTPATIENT. SPOUSE STATES [facility] OUTPATIENT PT WOULD BE CLOSER SO IDEALLY SHE THINKS THERE WOULD BE BETTER OPTION. DENY OTHER NEEDS AT HOME AT THIS TIME. INSTRUCTED TO NOTIFY STAFF WITH NEEDS, VERBALIZE UNDERSTANDING.
--- NOTE | 2023-10-23 16:40 | NUR ---
10/23/23 Shira Pike 1132- PT PRESENTS TO PACU, SEMI IRIZARRY POSITION. OPA IN PLACE, BREATHING EVEN AND NON LABORED, 6L O2 PER MASK. LR INFUSING TO LW IV. ABD SOFT, NON DISTENDED. SPLINT AND SLING IN PLACE TO RIGHT WRIST, ICE PLACED AND ELEVATED ON PILLOW. ALL MONITORS IN PLACE. 1139- PT WAKES TO TACTILE STIMULUS, FOLLOWS COMMANDS TO REMOVE OPA. O2 REMAINS IN PLACE, NO SIGNS OF DISTRESS. 1146- MOVED PT TO ROOM AIR AT THIS TIME. BREATHING EVEN AND NON LABORED. PT WAKES EASILY TO VERBAL STIMULI, RESTING INTERMITTENTLY. DENIES PAIN AND NAUSEA. 1155- WHILE RESTING PT SATS DROP TO 86%, SAT PT UP IN BED, ENCOURAGED TO DEEP BREATH AND COUGH. PT FEELS LIKE HE HAS STUFF TO COUGH UP BUT NOT ABLE TO AT THIS TIME. O2 SATS IMPROVE TO MID 90'S. 1205- O2 SATS CONTINUE TO DROP WITH RESTING, O2 PLACED AT 2L PER NC. O2 SATS IMPROVE TO MID TO HIGH 90'S. 1215- PT TAKEN TO MED/SURG, DROWSY. NO SIGNS OF DISTRESS. WAKES EASILY TO VERBAL STIMULI. SPLINT IN PLACE, CDI, ICE IN PLACE. REPORT TO GLORIA RN AT BEDSIDE, LR TKO TO LW IV. BED PLUGGED IN AND LOWEST POSITION, GLORIA REMAINS AT BEDSIDE. CARE OF PT TURNED OVER AT THIS TIME.
--- NOTE | 2023-10-23 18:34 | NUR ---
PATIENT BLADDER SCANNED FOR 231ML AND IS STARTING TO FEEL SOME FULLNESS IN HIS BLADDER.
--- NOTE | 2023-10-23 19:05 | NUR ---
BEDSIDE REPORT RECEIVED FROM GLORIA RN, PT ALERT AND ORIENTENED, DENIES PAIN AT THIS TIME, PT DESIRES TO TRY AND VOID, 2PA TO STAND AT BEDSIDE, PT ONLY ABLE TO VOID 25ML, TO BSC, PT ABLE TO VOID AN ADDITIONAL 75ML YELLOW URINE, PT BACK TO BED, RIGHT ARM IN SLING, DRESSING INTACT, FINGERS WARM, PINK, ARM ELEVATED ON PILLOWS WITH ICE PACK IN PLACE, SIDE RAILS UP X 3, BED ALARM ON, CALL LIGHT IN REACH, PT WITHOUT OTHER REQUESTS.
--- NOTE | 2023-10-23 19:50 | NUR ---
CARL RT INTO ROOM FOR ASSESSMENT, REPORTS HE ORDERED NEBULIZER FOR OCCASIONAL WHEEZING AND DIM IN BASES, PT USES CPAP AT HOME BUT DECLINES WANTING TO USE HOSPITAL CPAP, REMAINS ON OXYGEN 1L/NC AND CPOX, PLAN TO MONITOR TONIGHT.
[2023-10-23] MEDS ORDERED: ALBUTEROL/IPRATROPIUM 3 ML NEB INH PRN (20:00)
--- NOTE | 2023-10-23 20:35 | NUR ---
PT ASSISTED UP TO BEDSIDE TO VOID WITH URINAL, VOIDED 250ML YELLOW URINE, BACK TO BED, RIGHT ARM ELEVATED ON PILLOWS, ANDREW WRAP INTACT, ICE OVER DRESSING, PT DENIES NEED FOR PAIN MED, FINGERS ON RIGHT HAND STILL FEEL NUMB FROM EARILIER BLOCK, FINGERS PINK AND WARM.
--- NOTE | 2023-10-23 20:40 | NUR ---
CRAL RT IN ROOM FOR NEBULIZER TREATMENT, NEW LITER OF LR HUNG AND INFUSING WELL AT 125ML/HR, SITE INTACT.
--- NOTE | 2023-10-23 21:30 | NUR ---
ASSISTED PATIENT USED THE URINAL STANDING AT THE BEDSIDE. V/S AND I&O'S COMPLETED. ICE PACK MADE FOR RIGHT ARM. SLING IN PLACED. WATER REFRESHED. SCD IN PLACED. NO OTHER NEEDS EXPRESSED AT THIS TIME.
--- NOTE | 2023-10-23 21:33 | NUR ---
PT ASSISTED UP TO SIDE OF BED TO VOID WITH URINAL, 1PA PER [employer], PT VOIDED 225ML, PT BACK TO BED, ICE TO RIGHT ARM, PT WITHOUT COMPLAINTS AT THIS TIME.
--- NOTE | 2023-10-23 22:40 | NUR ---
PT RESTING WITH EYES CLOSED, RIGHT ARM ELEVATED WITH ICE, IVF INFUSING WELL.
[2023-10-24 00:50] VITALS: BP 126/71
--- NOTE | 2023-10-24 00:50 | NUR ---
NURSE CALLED TO ROOM, PT REQUESTS ASSIST UP TO SIDE OF BED TO VOID, PT VOIDED 325ML YELLOW URINE, PT REPORTS RIGHT ARM AND FINGERS STILL NUMB, FINGERS WARM AND PINK, UPON RETURN TO BED ARM ELEVATED ON 2 PILLOWS AND ICE BAG PLACED OVER DRESSING, VS DONE AND STABLE, OXYGEN REMAINS IN PLACE AT 2L/NC, IVF INFUSING WELL, PT WITHOUT OTHER REQUESTS, CALL LIGHT IN REACH.
[2023-10-24 01:24] VITALS: BP 126/71
--- NOTE | 2023-10-24 02:05 | NUR ---
PT APPEARS TO SLEEP, RESP EVEN AND REG, CPOX 96%
--- NOTE | 2023-10-24 04:15 | NUR ---
PT RESTING, REMAINS AWAKE, STATES RIGHT ARM IS "WAKING UP A BIT" BUT DENIES NEED FOR PAIN MEDICATION AT THIS TIME, CPOX AT 98%, PT WITHOUT OTHER REQUESTS.
--- NOTE | 2023-10-24 06:00 | NUR ---
PT RESTING QUIETLY, RESP EVEN AND REG, WITHOUT DISTRESS.
--- NOTE | 2023-10-24 07:15 | NUR ---
REPORT RECIEVED FROM MAGDI MIDDLETON.
--- NOTE | 2023-10-24 07:20 | NUR ---
PATIENT USES CALL LIGHT. ASKS TO STAND AT BEDSIDE TO USE URINAL. STAND BY ASSIST. PATIENT VOIDS 425 ML CLEAR, LIGHT YELLOW URINE WITHOUT DIFFICULTY. PATIENT BACK TO BED WITH CALL LIGHT. NO OTHER NEEDS AT THIS TIME
--- NOTE | 2023-10-24 07:22 | NUR ---
PT VOIDING WELL AND TOLERATING PO FLUIDS, IV CHANGED TO A SL, SITE INTACT, PT DENIES COMPLAINTS AT THIS TIME.
--- NOTE | 2023-10-24 07:30 | NUR ---
REPORT RECIEVED FROM MAGDI MIDDLETON WITH [facility]. PT RESTING IN BED. SN ISABELLA
[2023-10-24] MEDS ORDERED: CEFUROXIME500 MG PO (07:50)
[2023-10-24] MEDS ORDERED: OXYCODONE HCL5 MG PO (07:51)
--- NOTE | 2023-10-24 07:57 | NUR ---
Board has been updated and call light has been placed within reach. Patient requested help with breakfeast.
--- NOTE | 2023-10-24 08:15 | NUR ---
Spoke with pt. Patricia from the office saw already and has entered a dc order. Pt denies needs and plans on dc to home with . Pt states he has fu appt set with Dr. Parnell and denies further needs.
--- NOTE | 2023-10-24 08:43 | NUR ---
PT SITTING UP IN BED EATING MEAL. MEDS ADMIN PER EMAR. ASSESSMENT COMPLETE. PT STATES PAIN IS "1.5/10" AND DOES NOT REQ PAIN MEDS. SCDS ON. DENIES ANY NEEDS. CALLL LIGHT IN REACH.
[2023-10-24] MEDS ORDERED: NEURONTIN100 MG PO (08:57)
--- NOTE | 2023-10-24 08:58 | NUR ---
MED REC COMPLETE
--- NOTE | 2023-10-24 09:39 | NUR ---
PT NOT AVAIALBLE FOR VISIT. PROVIDED PRAYER.
[2023-10-24 09:40] VITALS: BP 132/55
--- NOTE | 2023-10-24 12:29 | EKG ---
[facility] [address] [facility] [place] [address] Signed Atrial fibrillation Low voltage QRS Abnormal ECG When compared with ECG of 03-OCT-2022 14:47, T wave amplitude has decreased in Anterior leads Confirmed by Holden Colon ([id number]) on 10/24/2023 12:28:44 PM Electronically Signed By: HOLDEN COLON MD 10/24/23 1229 PATIENT NAME: DANIELLE ROMERO Electrocardiogram DATE OF : 36 PHYSICIAN: HOLDEN COLON MD REPORT #: [id number] REPORT IS CONFIDENTIAL AND NOT TO BE RELEASED WITHOUT AUTHORIZATION
--- NOTE | 2023-10-25 07:02 | OR ---
[facility] [address] [place] [address] Signed DATE OF OPERATION: 10/23/2023 SURGEON: Narciso Parnell MD PREOPERATIVE DIAGNOSIS: Open right distal radius and ulna fracture . POSTOPERATIVE DIAGNOSIS: Open right distal radius and ulna fracture . PROCEDURES PERFORMED: Open reduction and internal fixation right distal radius, open reduction and internal fixation right distal ulna, removal of hardware deep, irrigation and debridement of skin, subcutaneous tissue, and bone, right ulna. [employer]: Patricia Elizalde PA-C. ANESTHESIA: General. BLOOD LOSS: None. TOURNIQUET TIME: 100 minutes. IMPLANTS: Synthes variable angle distal radius plate, 2.0 modular hand plate for the ulna. BRIEF HISTORY: Dm is an 83-year-old gentleman, who suffered a ground level fall last night fracturing his radius and ulna above his prior distal radius plate. He was admitted to the hospital. We were unable to do the surgery due to other emergency operations going on. He was kept overnight on IV antibiotics, brought to the operating room this morning. Risks, benefits, and alternatives of surgery were discussed with him and he elected to proceed. DESCRIPTION OF PROCEDURE: Once consent was obtained, he was taken to the operating room. After adequate Electronically Signed By: NARCISO PARNELL MD 10/25/23 0702 PATIENT NAME: DM ROMERO OPERATIVE REPORT DATE OF : 36 REPORT #: [id number] PHYSICIAN: NARCISO PARNELL MD PCP: REJI VELARDE MD REPORT IS CONFIDENTIAL AND NOT TO BE RELEASED WITHOUT AUTHORIZATION [facility] [address] [place], [place] [address] Signed anesthesia, he was placed on the operating room table with a hand table. The arm was placed in a well-padded proximal arm tourniquet and prepped and draped in a standard sterile fashion. The arm was exsanguinated using Esmarch bandage and tourniquet inflated to 200 mmHg. The previous distal radius incision on the volar side of the wrist was incised longitudinally. Blunt dissection was undertaken down to the plate with careful dissection under the brachioradialis. The plate was fully cleared of volar soft tissue. Eight screws were removed and the plate was carefully levered off the bone. Once this was accomplished, the fracture was distracted and cleared of soft tissue. The fracture was then reduced and held in position. A long volar variable angle plate was then positioned on the volar radius and checked with image intensifier. This was found to be a good position. Two screws were drilled proximal and distal to the fracture. The radiographs showed this to be good alignment. Four screw holes were placed distally and three proximally. There was good reduction and alignment of the radius. Once this was accomplished, it was copiously irrigated with antibiotic solution, closed with 2-0 and 3-0 Monocryl and 3-0 Prolene. The ulna was then approached from ulnar position. The skin was incised longitudinally, taken bluntly down to the fracture site. The fracture was then cleared of debris and distracted. It was at that point, we noted that the ulnar nerve was completely encapsulated in the fracture itself. This was carefully mobilized out of the fracture and placed back on the volar side of the wrist. The fracture was then reduced and crossclamped. A 2-0 small Y plate was then fashioned to fit the lateral ulna. This was held with two screws and again checked using image intensifier and found to be well reduced. The remainder of the screw holes were appropriately drilled and placed. Final radiographs showed good reduction of the ulna, good screw lengths and no interference with the DRUJ. The wound was again copiously irrigated and closed with 2-0 Monocryl and 3-0 Prolene. Steri-Strips were applied to both wounds along with Dermabond and they were dressed with Allevyn dressing and sterile cast padding. He was placed in a volar splint and taken to the recovery room in satisfactory condition. All sponge, needle, and instrument counts were correct. Narciso Parnell MD BA/MODL /[id number] Electronically Signed By: NARCISO PARNELL MD 10/25/23 0702 PATIENT NAME: DM ROMERO OPERATIVE REPORT DATE OF : 36 REPORT #: [id number] PHYSICIAN: NARCISO PARNELL MD PCP: REJI VELARDE MD REPORT IS CONFIDENTIAL AND NOT TO BE RELEASED WITHOUT AUTHORIZATION [address] [address] Signed Copies: ~ Electronically Signed By: NARCISO PARNELL MD 10/25/23 0702 PATIENT NAME: HEATHERDM BATES OPERATIVE REPORT DATE OF : 36 REPORT #: [id number] PHYSICIAN: NARCISO PARNELL MD PCP: REJI VELARDE MD REPORT IS CONFIDENTIAL AND NOT TO BE RELEASED WITHOUT AUTHORIZATION
== END 2023-10-24 10:05 | disposition home or self-care (01) ==
LOC: ED 16:18 → MS 16:20 → ED 18:02 → MS 18:02
PROVIDERS: Emergency Medicine; ADMIT Specialist; ATTEND Specialist
PROC: 0PSH04Z Reposition Right Radius with Internal Fixation Device, Open Approach (ICD-10-PCS; 2023-10-23)
PROC: 0PSK04Z Reposition Right Ulna with Internal Fixation Device, Open Approach (ICD-10-PCS; 2023-10-23)
PROC: 0PPH04Z Removal of Internal Fixation Device from Right Radius, Open Approach (ICD-10-PCS; principal; 2023-10-23 09:05)
DX: S52.501B Unspecified fracture of the lower end of right radius, initial encounter for open fracture type I or II (principal); S52.601B Unspecified fracture of lower end of right ulna, initial encounter for open fracture type I or II; W18.30XA Fall on same level, unspecified, initial encounter; Z88.2 Allergy status to sulfonamides; Z23 Encounter for immunization
CPT/HCPCS: 01830; 29125; 36415; 51798; 64417; 73100; 73110; 80053; 85025; 86850; 86900; 86901; 90471; 90715; 93005; 93010; 94640; 94762; 96376; 99284-25; A9270; C1713; G0378; J0690; J1100; J1170; J2704; J2795; J3010; J7121

== ENCOUNTER 2023-11-25 16:38 | Emergency (ER) | payer MEDICARE, OTHER ==
[~2023-11-25] VITALS: Ht 177.8 cm; Wt 77.0 kg
[~2023-11-25 16:38] MED LIST changes: -CEFAZOLIN SODIUM 2 GM/20 ML SYR IV SCH; +CEFUROXIME500 MG PO; +NEURONTIN100 MG PO; +OXYCODONE HCL5 MG PO
[2023-11-25] MEDS ORDERED: GLUCAGON,HUMAN RECOMBINANT 1 MG/ML VIAL IV ONE (17:30)
[2023-11-25] MEDS ORDERED: ondansetron HCL 4 MG/2 ML VIAL IV ONE (18:15)
[2023-11-25 19:56] LABS: BASOPHILS 0.1 % (0-2); EOSINOPHILS 2.1 % (0-6); HEMATOCRIT 38.7 % (35.0-50.0); HEMOGLOBIN 12.7 g/dL (12.0-18.0); LYMPHOCYTES 14.6 % (24-44); MCH 29.1 (27-36); MCHC 32.8 g/dl (30-36); MCV 88.8 fl (81-99); MONOCYTES 10.5 % (0-12); NEUTROPHILS 72.7 % (39-80); PLATELET COUNT 232 K/uL (140-440); RBC 4.35 M/ul (4.3-5.7); RDW 13.5 (10.5-15.0)
[2023-11-25] MEDS ORDERED: LACTATED RINGER'S 1,000 ML IV SCH (20:00)
[2023-11-25 20:06] LABS: INR 1.07 (0.80-1.30); PROTIME 13.5 Sec (11.2-14.2)
[2023-11-25 20:08] LABS: PARTIAL THROMBOPLASTIN TIME 29.7 Sec (22.9-41.3)
[2023-11-25 20:12] LABS: ALBUMIN 3.2 g/dL (3.4-5.0); ALBUMIN/GLOBULIN RATIO 0.71 (1.1-2.4); ANION GAP 10.6 (7-21); BILIRUBIN, TOTAL 0.6 ng/dL (0.2-1.0); BUN/CREATININE RATIO 15.15 (6.0-28.6); CALCIUM 9.4 mg/dL (8.5-10.1); CREATININE, SERUM 0.99 mg/dL (0.70-1.30); POTASSIUM 4.6 mmol/L (3.5-5.1); PROTEIN, TOTAL 7.7 g/dL (6.4-8.2)
[2023-11-25 20:47] VITALS: BP 109/80
== END 2023-11-25 20:47 | disposition short-term general hospital (02) ==
LOC: ED 16:38
PROVIDERS: Internal Medicine
DX: T17.528A Food in bronchus causing other injury, initial encounter (principal); W44.F3XA Food entering into or through a natural orifice, initial encounter; I48.91 Unspecified atrial fibrillation; I50.9 Heart failure, unspecified; E78.00 Pure hypercholesterolemia, unspecified; Z86.73 Personal history of transient ischemic attack (TIA), and cerebral infarction without residual deficits; Z90.49 Acquired absence of other specified parts of digestive tract; Z88.2 Allergy status to sulfonamides; Z91.018 Allergy to other foods; Z79.899 Other long term (current) drug therapy
CPT/HCPCS: 36415; 70490; 71250; 80053; 85025; 85610; 85730; 96374; 96375; 99285-25; J1610; J2405; J7121

== ENCOUNTER 2024-11-21 11:25 | Emergency (ER) | payer OTHER ==
[~2024-11-21] VITALS: Ht 177.8 cm; Wt 85.3 kg
[2024-11-21] MEDS ORDERED: HYDROCODON-ACE1 EA10 PO (15:39)
[2024-11-21 15:54] VITALS: BP 118/66
== END 2024-11-21 15:58 | disposition home or self-care (01) ==
LOC: ED 11:25
DX: S82.831A Other fracture of upper and lower end of right fibula, initial encounter for closed fracture (principal); M77.31 Calcaneal spur, right foot; I48.91 Unspecified atrial fibrillation; I50.9 Heart failure, unspecified; E78.00 Pure hypercholesterolemia, unspecified; Z86.73 Personal history of transient ischemic attack (TIA), and cerebral infarction without residual deficits; Z88.2 Allergy status to sulfonamides; Z91.018 Allergy to other foods; Z79.899 Other long term (current) drug therapy; X50.1XXA Overexertion from prolonged static or awkward postures, initial encounter
CPT/HCPCS: 73610; 73630; 99283